=== PATIENT | female | born 1950 | race Caucasian/White ===

== ENCOUNTER → 2022-05-11 09:10 | Outpatient (CLI) | payer BC, SELFPAY ==
--- NOTE | 2022-05-11 09:11 | DI.ECHO.S_ITS ---
[facility] +---------+ : : [address] : : : : [id number] : : : : Phone: [phone] Echocardiogram Report + + :Name: TRISTAN LAMBERT Study Date: 05/11/2022 Height: 65 in : :[facility] ReadingLocation: Weight: 140 lb : : Gender: Female BSA: 1.7 m2 : :: 1950 Age: 71 yrs BP: 166/87 mmHg: :Reason For Study: RBBB : :Ordering Physician: AMNA, : :DAVID Performed By: Timoteo Moreno : :Referring: DAVID WOO : + + Interpretation Summary Sinus rhythm with IVCD. Hypertensive during exam Left ventricular systolic function is normal. The ejection fraction is estimated to be 55-60%. Diastolic parameters suggest a relaxation abnormality of the left ventricle, consistent with probable normal filling pressures. The left atrium is mildly dilated. There is mild tricuspid regurgitation. The right ventricular systolic pressure is estimated to be at least 29 mmHg based on an estimated right atrial pressure of 3 mm Hg. No prior study for comparison. Procedure: A two-dimensional transthoracic echocardiogram with color flow and Doppler was performed. The study quality was technically adequate. There is no prior echocardiogram noted for this patient. Sinus rhythm with IVCD. Hypertensive during exam. Left Ventricle: The left ventricle is normal in size and wall thickness. Left ventricular systolic function is normal. The ejection fraction is estimated to be 55-60%. There are no focal wall motion abnormalities. Diastolic parameters suggest a relaxation abnormality of the left ventricle, consistent with probable normal filling pressures. Right Ventricle: The right ventricle is normal in size and function. Atria: The left atrium is mildly dilated. Right atrial size is normal. The interatrial septum grossly appears intact with no obvious evidence for an atrial septal defect. Mitral Valve: The mitral valve is normal in structure and function. There is trace mitral regurgitation. Aortic Valve: The aortic valve is normal in structure and function. No aortic regurgitation is present. Tricuspid Valve: The tricuspid valve is normal in structure and function. There is mild tricuspid regurgitation. The right ventricular systolic pressure is estimated to be at least 29 mmHg based on an estimated right atrial pressure of 3 mm Hg. Pulmonic Valve: The pulmonic valve is normal in structure and function. There is trace pulmonic regurgitation. Great Vessels: The aortic root is normal size. The dimensions of the ascending aorta are normal. The IVC is of normal diameter and collapses greater than 50% with a sniff. This suggests a low right atrial pressure of 3 mm Hg. Pericardium/ Pleura There is no pericardial effusion. There is no pleural effusion. MMode/2D Measurements & Calculations LVIDd: 5.1 cm LVOT diam: 1.9 cm LVIDs: 3.5 cm Ao root diam: 2.9 cm FS: 31.5 % asc Aorta Diam: 3.6 cm IVSd: 0.72 cm LVPWd: 0.66 cm LV wick. diameter/BSA (cm/m^2): 3.0 LV sys. diameter/BSA (cm/m^2): 2.1 LA A2 area: 18.7 cm2 RA long axis: 4.7 cm LA A4 area: 18.7 cm2 RA area: 16.6 cm2 LA length (vol): 5.1 cm RA vol: 50.0 ml LA vol: 58.5 ml RA : 29.4 ml/m2 LA vol index: 34.4 ml/m2 TAPSE: 2.2 cm Doppler Measurements & Calculations Ao V2 max: 161.7 cm/sec LVOT Max Elo: 95.8 cm/sec Ao V2 mean: 111.8 cm/sec LV V1 max P.7 mmHg Ao max P.5 mmHg LV V1 VTI: 23.2 cm Ao mean P.5 mmHg NORBERTO(I,D): 1.8 cm2 Ao V2 VTI: 38.3 cm NORBERTO(V,D): 1.7 cm2 sev ratio: 0.61 NORBERTO indexed to BSA (cm^2/m^2): 1.0 MV E max leo: 62.6 cm/sec TR max leo: 252.6 cm/sec MV A max leo: 87.1 cm/sec TR max P.5 mmHg MV E/A: 0.72 Med Peak E' Leo: 6.5 cm/sec E/E' med: 9.6 Lat Peak E' Leo: 6.4 cm/sec E/E' lat: 9.8 E/e' average: 9.7 MV dec time: 0.23 sec SV(LVOT): 67.3 ml Reading Physician:EB
== END ==
PROVIDERS: Referring Provider Internal Medicine; Visit Provider Internal Medicine
DX: I25.10 Atherosclerotic heart disease of native coronary artery without angina pectoris (principal); I45.10 Unspecified right bundle-branch block; I07.1 Rheumatic tricuspid insufficiency
CPT/HCPCS: 93306

== ENCOUNTER → 2022-08-23 08:53 | Outpatient (CLI) | payer BC, SELFPAY ==
[2022-08-23 09:51] LABS: Add Manual Diff / Slide Review NO; Basophils Absolute Auto 0 /uL (0-100); Basophils Percent Auto 0.5 % (0-2); Eosinophils Absolute Auto 200 /uL (0-450); Eosinophils Percent Auto 2.9 % (2-4); Hematocrit 36.6 % (36-46); Lymphocytes Absolute Auto 1900 /uL (1100-4500); Lymphocytes Percent Auto 31.8 % (25-40); Mean Corpuscular HGB Conc 32.9 % (30-36); Mean Corpuscular Hemoglobin 29.9 PG (26-34); Mean Corpuscular Volume 90.9 fL (80-100); Monocytes Absolute Auto 500 /uL (0-900); Neutrophils Absolute Auto 3400 /uL (1500-7000); Neutrophils Percent Auto 55.8 % (50-75); Platelet Count 262 X10^3/uL (150-400); Red Blood Cell Count 4.02 X10^6/uL (4.0-5.2); Red Cell Distribution Width 13.4 % (11.6-14.8); White Blood Cell Count 6.1 X10^3/uL (4.5-11.0)
[2022-08-23 10:50] LABS: Alanine Aminotransferase 21 IU/L (<35); Albumin 4.1 g/dL (3.5-5.0); Albumin Globulin Ratio 1.6 (1.0-2.8); Alkaline Phosphatase 75 U/L (38-126); Aspartate Aminotransferase 26 IU/L (14-36); BUN Creatinine Ratio 14.1 (6-22); Bilirubin Total 0.6 mg/dL (0.2-1.3); Blood Urea Nitrogen 11 mg/dL (7-17); Carbon Dioxide 30 mmol/L (22-32); Chloride 105 mmol/L (98-107); Cholesterol 142 mg/dL (140-199); Estimated Glomerular Filt Rate > 60 mL/min (>60); Globulin 2.6 g/dL (1.7-4.1); Glucose 99 mg/dL (80-110); HDL Cholesterol 70 mg/dL (40-60); HEMOLYSIS < 15 (0-50); LDL Cholesterol Calculated 57 mg/dL (<100); Potassium 4.3 mmol/L (3.4-5.1); Sodium 142 mmol/L (137-145); Total Protein 6.7 g/dL (6.3-8.2); Triglycerides 75 mg/dL (35-150)
[2022-08-23 11:16] LABS: TSH w/ Reflex to FT4 2.15 uIU/mL (0.47-4.68)
[2022-08-23 11:17] LABS: Creatinine Urine Random 97.1 mg/dL
[2022-08-23 11:22] LABS: Microalbumin Urine Random < 0.6 mg/dL (0-1.6)
== END ==
PROVIDERS: PCP Family Medicine; Referring Provider Family Medicine; Visit Provider Family Medicine
DX: E78.2 Mixed hyperlipidemia (principal); I10 Essential (primary) hypertension; I25.10 Atherosclerotic heart disease of native coronary artery without angina pectoris; R00.2 Palpitations
CPT/HCPCS: 36415; 80053; 80061; 82043; 82570; 84443; 85025

== ENCOUNTER → 2022-11-28 11:11 | Outpatient (CLI) | payer BC, SELFPAY ==
[2022-11-28 13:27] LABS: Cholesterol 136 mg/dL (140-199); HDL Cholesterol 65 mg/dL (40-60); LDL Cholesterol Calculated 57 mg/dL (<100); Triglycerides 72 mg/dL (35-150)
== END ==
PROVIDERS: PCP Family Medicine; Referring Provider Internal Medicine Cardiovascular Disease; Visit Provider Internal Medicine Cardiovascular Disease
DX: E78.5 Hyperlipidemia, unspecified (principal)
CPT/HCPCS: 36415; 80061

== ENCOUNTER → 2023-05-08 14:21 | Outpatient (CLI) | payer BC, SELFPAY ==
--- NOTE | 2023-05-08 | DI.MG.S_ITS ---
BILATERAL DIGITAL SCREENING MAMMOGRAM 3D/2D WITH CAD: 05/08/2023 CLINICAL: Routine screening. Comparison is made to exams dated: 12/25/2021 mammogram, 05/26/2020 mammogram, and 01/28/2018 mammogram - outside location. Both breasts are almost entirely fatty (category a/<25% glandular tissue). Current study was also evaluated with a Computer Aided Detection (CAD) system. There are mole markers on the right breast. No significant masses, calcifications, or other findings are seen in either breast. There has been no significant interval change. IMPRESSION: NEGATIVE There is no mammographic evidence of malignancy. A 1 year screening mammogram is recommended. Based on the Tyrer Cuzick model (a risk assessment model) the patient's lifetime risk is 3.4% and her 10 year risk is 2.3%. According to the ACR, ACS, and NCCN guidelines, an annual breast MRI exam along with mammogram is recommended if the patient's lifetime risk is 20% or greater. This exam was interpreted at Station ID: [id number]. NOTE: For mammograms, a report in lay terms will be sent to the patient. Approximately 15% of breast malignancies will not be visualized mammographically. In the management of a palpable breast mass, a negative mammogram must not discourage biopsy of a clinically suspicious lesion. Electronically Signed By: Gavin wall/mirna:05/21/2023 11:05:12 letter sent: Normal Exam ACR BI-RADS Category 1: Negative 3341F
== END ==
PROVIDERS: PCP Family Medicine; Referring Provider Family Medicine; Visit Provider Family Medicine
DX: Z12.31 Encounter for screening mammogram for malignant neoplasm of breast (principal)
CPT/HCPCS: 77063; 77067

== ENCOUNTER → 2023-10-17 10:04 | Outpatient (CLI) | payer MEDICARE, SELFPAY ==
--- NOTE | 2023-10-17 10:07 | DI.RAD.S_ITS ---
Bone Density Report Name: TRISTAN LAMBERT Age: 72 Sex: Female Ethnicity: White Date of : 1950 Indication: postmenopausal; screening for osteoporosis; Referring Provider: HANNAH PENA Study: Bone densitometry was performed. Exam Date: October 17, 2023 Accession number: [id number] Bone Density: Region BMD T-score Z-score Classification AP Spine(L1-L4) 0.852 -1.8 0.4 Osteopenia Femoral Neck (Left) 0.624 -2.0 -0.1 Osteopenia Total Hip (Left) 0.752 -1.6 0.0 Osteopenia Femoral Neck (Right) 0.645 -1.8 0.1 Osteopenia Total Hip (Right) 0.784 -1.3 0.3 Osteopenia Total Hip Mean 0.768 -1.5 0.2 Osteopenia World Health Organization criteria for BMD impression classify patients as: Normal (T-score at or above -1.0), Osteopenia (T-score between -1.0 and -2.5), or Osteoporosis (T-score at or below -2.5). 10-year Fracture Risk(1): Major Osteoporotic Fracture 12% Hip Fracture 2.5% Reported Risk Factors: [place] (), Neck BMD=0.624, BMI=24.1 (1) FRAX(R) Version 3.08. Fracture probability calculated for an untreated patient. Fracture probability may be lower if the patient has received treatment. Impression: The patient has low bone mass, based on the Left Femoral Neck T-score. The patient has an estimated ten-year risk of hip fracture of 2.5% and an estimated ten-year risk of major fracture of 12%, based on the WHO FRAX algorithm. Discussion: BONE DENSITY IS LOW AT ONE OR MORE SKELETAL SITES. This patient's lowest T-score is low at one or more skeletal sites. It meets the World Health Organization's (WHO) criteria for low bone mass (T-score between -1.0 and -2.5). The patient's 10-year risk of fracture as calculated by FRAX is less than the threshold where pharmacological therapy is recommended by the National Osteoporosis Foundation (NOF). However, all treatment decisions require clinical judgment and consideration of individual patient factors, including patient preferences, comorbidities, previous drug use, risk factors not captured in the FRAX model (e.g., frailty, falls, vitamin D deficiency, increased bone turnover, interval significant decline in bone density) and possible under or overestimation of fracture risk by FRAX. The patient should follow a healthful lifestyle (good nutrition with adequate calcium and vitamin D, and appropriate weight-bearing exercise). Follow-Up: Consider repeating this study in 2 to 3 years to reassess this patient's status, or sooner if there is some new clinical indication. Reported by: SENA WHITMORE M.D. on 10/17/2023 11:20:00 AM.
[2023-10-17 11:46] LABS: Add Manual Diff / Slide Review NO; Basophils Absolute Auto 0 /uL (0-100); Basophils Percent Auto 0.8 % (0-2); Eosinophils Absolute Auto 100 /uL (0-450); Eosinophils Percent Auto 1.3 % (2-4); Hematocrit 37.1 % (36-46); Hemoglobin 12.2 g/dL (12.0-16.0); Lymphocytes Absolute Auto 1800 /uL (1100-4500); Lymphocytes Percent Auto 33.3 % (25-40); Mean Corpuscular HGB Conc 32.9 % (30-36); Mean Corpuscular Hemoglobin 29.7 PG (26-34); Mean Corpuscular Volume 90.4 fL (80-100); Monocytes Absolute Auto 500 /uL (0-900); Monocytes Percent Auto 8.8 % (3-14); Neutrophils Absolute Auto 3100 /uL (1500-7000); Neutrophils Percent Auto 55.8 % (50-75); Platelet Count 252 X10^3/uL (150-400); Red Cell Distribution Width 13.2 % (11.6-14.8); White Blood Cell Count 5.6 X10^3/uL (4.5-11.0)
[2023-10-17 12:17] LABS: Alanine Aminotransferase 21 IU/L (<35); Albumin Globulin Ratio 1.6 (1.0-2.8); Alkaline Phosphatase 72 U/L (38-126); Aspartate Aminotransferase 31 IU/L (14-36); BUN Creatinine Ratio 19.7 (6-22); Bilirubin Total 0.8 mg/dL (0.2-1.3); Blood Urea Nitrogen 15 mg/dL (7-17); Calcium 9.5 mg/dL (8.4-10.2); Carbon Dioxide 27 mmol/L (22-32); Chloride 107 mmol/L (98-107); Cholesterol 146 mg/dL (140-199); Estimated Glomerular Filt Rate > 60 mL/min (>60); Globulin 2.5 g/dL (1.7-4.1); Glucose 93 mg/dL (80-110); HDL Cholesterol 68 mg/dL (40-60); HEMOLYSIS < 15 (0-50); LDL Cholesterol Calculated 60 mg/dL (<100); Potassium 4.2 mmol/L (3.4-5.1); Sodium 139 mmol/L (137-145); Total Protein 6.5 g/dL (6.3-8.2); Triglycerides 91 mg/dL (35-150)
[2023-10-17 12:42] LABS: TSH w/ Reflex to FT4 2.19 uIU/mL (0.47-4.68)
[2023-10-17 15:01] LABS: Creatinine Urine Random 114.4 mg/dL
[2023-10-17 15:07] LABS: Microalbumin Urine Random < 0.6 mg/dL (0-1.6)
[2023-10-18 08:50] LABS: Apolipoprotein B 65 mg/dL (<90)
== END ==
PROVIDERS: PCP Family Medicine; Referring Provider Family Medicine; Visit Provider Family Medicine
DX: M81.0 Age-related osteoporosis without current pathological fracture (principal); I25.10 Atherosclerotic heart disease of native coronary artery without angina pectoris; I10 Essential (primary) hypertension; E78.2 Mixed hyperlipidemia; I45.10 Unspecified right bundle-branch block; R00.2 Palpitations
CPT/HCPCS: 36415; 77080; 80053; 80061; 82043; 82172; 82570; 84443; 85025

== ENCOUNTER → 2023-12-14 14:48 | Outpatient (CLI) | payer MEDICARE, SELFPAY | PROVIDERS: PCP Family Medicine; Visit Provider Registered Nurse | DX: J02.9 Acute pharyngitis, unspecified (principal) | CPT/HCPCS: 87070 ==

== ENCOUNTER → 2024-01-17 09:13 | Outpatient (CLI) | payer MEDICARE, SELFPAY | PROVIDERS: PCP Family Medicine; Visit Provider Nurse Practitioner Family | DX: R10.9 Unspecified abdominal pain (principal) | CPT/HCPCS: 87077; 87086; 87186 ==

== ENCOUNTER → 2024-03-03 08:58 | Outpatient (CLI) | payer MEDICARE, SELFPAY ==
--- NOTE | 2024-03-03 09:00 | DI.MG.S_ITS ---
BILATERAL DIGITAL DIAGNOSTIC MAMMOGRAM 3D/2D: 03/03/2024 CLINICAL: Bilateral breast pain, Left breast pain greater than Right. Due for bilateral. Comparison is made to exams dated: 05/08/2023 mammogram - [facility], 12/25/2021 mammogram, and 05/26/2020 mammogram - outside location. Both breasts are heterogeneously dense, which may obscure small masses (category c / 51-75% glandular tissue). There are post surgical changes from prior excisional biopsy in the left breast. No significant masses, calcifications, or other findings are seen in either breast. Of note, because the patient's symptoms are diffuse, no BB marker was placed. IMPRESSION: BENIGN Status post left breast excisional biopsy. No mammographic evidence of malignancy. A 1 year screening mammogram is recommended. Diffuse, non-focal symptoms, such as pain or fullness are typically benign. Clinical follow-up is recommended, and further management of these symptoms should be based on the results of clinical evaluation. If diffuse symptoms persist or become more focal in nature, further clinical evaluation should be considered. Findings and recommendations were conveyed to the patient during today's evaluation. Based on the Tyrer Cuzick model (a risk assessment model) the patient's lifetime risk is 7.2% and her 10 year risk is 5.4%. According to the ACR, ACS, and NCCN guidelines, an annual breast MRI exam along with mammogram is recommended if the patient's lifetime risk is 20% or greater. This exam was interpreted at Station ID: [id number]. NOTE: For mammograms, a report in lay terms will be sent to the patient. Approximately 15% of breast malignancies will not be visualized mammographically. In the management of a palpable breast mass, a negative mammogram must not discourage biopsy of a clinically suspicious lesion. Electronically Signed By: Latoya Horne M.D., Ph.D. eb/:03/03/2024 13:34:04 letter sent: Clinical Evaluation ACR BI-RADS Category 2: Benign Finding(s) 3342F
== END ==
PROVIDERS: PCP Family Medicine; Referring Provider Physician Assistant; Visit Provider Physician Assistant
DX: N64.4 Mastodynia (principal); N63.25 Unspecified lump in the left breast, overlapping quadrants; R92.333 Mammographic heterogeneous density, bilateral breasts
CPT/HCPCS: 77066; G0279

== ENCOUNTER 2024-03-25 12:23 | Emergency (ER) | payer MEDICARE, SELFPAY ==
[2024-03-25] VITALS (14 sets, daily range): BP systolic 159–198; BP diastolic 63–80; PULSE 46–59; RESP 13–25; TEMP 36.4–37.1; O2SAT 99–100; BMI 25.0
--- NOTE | 2024-03-25 12:29 | DI.RAD.S_ITS ---
PROCEDURE: XR CHEST 1V INDICATIONS: chest pain TECHNIQUE: One view of the chest was acquired. COMPARISON: None. FINDINGS: Surgical changes and devices: None. Lungs and pleura: Lungs are clear. No pleural effusions or pneumothorax. Mediastinum: Mediastinal contours appear normal. Heart size is normal. Bones and chest wall: No suspicious bony lesions. Overlying soft tissues appear unremarkable. IMPRESSION: No acute cardiopulmonary abnormality is seen. Dictated by: Nikolai Ramsey M.D. on 03/25/2024 at 14:30 Approved by: Nikolai Ramsey M.D. on 03/25/2024 at 14:30
--- NOTE | 2024-03-25 12:29 | EKG_ITS ---
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
[2024-03-25] MEDS: ASPIRIN 81 MG CHEW TAB 324 MG PO (12:34)
[2024-03-25 12:46] LABS: Add Manual Diff / Slide Review NO; Basophils Absolute Auto 0 /uL (0-100); Basophils Percent Auto 0.6 % (0-2); Eosinophils Absolute Auto 0 /uL (0-450); Eosinophils Percent Auto 0.6 % (2-4); Hematocrit 35.3 % (36-46); Hemoglobin 11.7 g/dL (12.0-16.0); Lymphocytes Absolute Auto 2200 /uL (1100-4500); Lymphocytes Percent Auto 34.1 % (25-40); Mean Corpuscular HGB Conc 33.3 % (30-36); Mean Corpuscular Hemoglobin 29.9 PG (26-34); Mean Corpuscular Volume 89.8 fL (80-100); Monocytes Absolute Auto 600 /uL (0-900); Monocytes Percent Auto 9.4 % (3-14); Neutrophils Absolute Auto 3600 /uL (1500-7000); Neutrophils Percent Auto 55.3 % (50-75); Platelet Count 289 X10^3/uL (150-400); Red Blood Cell Count 3.93 X10^6/uL (4.0-5.2); Red Cell Distribution Width 13.1 % (11.6-14.8); White Blood Cell Count 6.4 X10^3/uL (4.5-11.0)
[2024-03-25 12:50] LABS: HEMOLYSIS < 15 (0-50); Prothrombin Time 11.8 SECONDS (9.4-12.5)
[2024-03-25 12:53] LABS: PTT Partial Thromboplastin Tim 36 SECONDS (25.1-36.5)
[2024-03-25 12:55] LABS: Alanine Aminotransferase 25 IU/L (<35); Albumin 3.9 g/dL (3.5-5.0); Albumin Globulin Ratio 1.3 (1.0-2.8); Alkaline Phosphatase 65 U/L (38-126); Aspartate Aminotransferase 31 IU/L (14-36); BUN Creatinine Ratio 20.5 (6-22); Bilirubin Total 0.4 mg/dL (0.2-1.3); Blood Urea Nitrogen 16 mg/dL (7-17); Calcium 9.5 mg/dL (8.4-10.2); Carbon Dioxide 27 mmol/L (22-32); Chloride 104 mmol/L (98-107); Creatine Kinase 69 U/L (30-135); Estimated Glomerular Filt Rate > 60 mL/min (>60); Glucose 136 mg/dL (80-110); Lipase 139 U/L (23-300); Magnesium 1.9 mg/dL (1.6-2.3); Potassium 3.9 mmol/L (3.4-5.1); Sodium 135 mmol/L (137-145); Total Protein 6.9 g/dL (6.3-8.2)
[2024-03-25] MEDS: MAG HYDROX/ALUMINUM/SIMETH SUS 20 ML, LIDOCAINE VISCOUS 2% 15 ML PO (13:04)
[2024-03-25 13:06] LABS: NT-proBNP (BNP-Adult 18+) 176 pg/mL (<125)
[2024-03-25 13:08] LABS: Troponin I < 0.012 ng/mL (0.01-0.034)
--- NOTE | 2024-03-25 13:25 | ED.CHESTPAIN ---
HPI - Chest Pain General Chief Complaint: Chest Pain Stated Complaint: Indigestion, Back Px, Past Heart Attack Time Seen by Provider: 03/25/24 12:46 Source: patient Mode of arrival: Ambulatory Limitations: no limitations History of Present Illness HPI narrative: 73-year-old female with history of prior coronary artery disease, recalls 5 years ago in [facility] having chest pain event, heart catheterization showing some kind of 70% stenosis lesion but not any anatomic position to be stented, has subsequently had medical management including Lipitor and metoprolol and aspirin, now having 2 days' duration of lower parasternal precordial chest discomfort, not worse with deep breathing, no radiation to the left arm or jaw or neck. She has some right shoulder scapular area discomfort as she says is worse with movement of the right shoulder, but this feels different. This complex of symptoms is not feel typical of her previous heart attack symptoms. She had no associated nausea, no associated diaphoresis. No pain to her legs. She has not tried any specific medications. No recent antacid. No known history of stomach ulcers or stomach acid problems, no prior endoscopies recalled Related Data Home Medications Medication Instructions Recorded Confirmed Lactobacillus rhamnosus GG 1 cap PO DAILY 04/18/22 02/27/24 [Culturelle] calcium carbonate 1 tab PO BID 04/18/22 02/27/24 Previous Rx's Medication Instructions Recorded aspirin 81 mg tablet,delayed 81 mg PO DAILY #90 tabs 05/11/22 release sennosides 8.6 mg-docusate sodium 1 tab-cap PO BEDTIME #90 tabs 05/11/22 50 mg tablet (Stool Softener-Stimulant Laxative) cholecalciferol (vitamin D3) 125 125 mcg PO DAILY #90 caps 09/06/22 mcg (5,000 unit) capsule atorvastatin 40 mg tablet 40 mg PO BEDTIME #90 tabs 08/21/23 alendronate 70 mg tablet 70 mg PO QWEEK #12 tabs 01/21/24 metoprolol tartrate 25 mg tablet 25 mg PO BID #180 tabs 02/13/24 omeprazole 20 mg capsule,delayed 20 mg PO DAILY upper abdominal 03/25/24 release pain 30 days #30 caps Allergies Allergy/AdvReac Type Severity Reaction Status Date / Time No Known Drug Allergies Allergy Verified 03/25/24 12:27 Review of Systems Review of Systems Narrative: see HPI Patient History Medical History Allergies (~1972) Mumps (~1959) Fibroids Age-related osteoporosis without current pathological fracture Mixed hyperlipidemia Essential hypertension Coronary artery disease RBBB Palpitations Family History Father Cancer Mother History of heart disease Brother History of heart disease Sister History of heart disease Social History Smoking Status: Former smoker Smoking Status: Former smoker alcohol intake frequency: holidays/special occasions only Substance Use Type: does not use Exam Narrative Exam Narrative: GENERAL: Well-developed patient, in mild distress. HEAD: Atraumatic. Normocephalic. EYES: Pupils equal round and reactive. Extraocular motions intact. No scleral icterus. No injection or drainage. ENT: Nose without bleeding, purulent drainage. Throat without erythema, tonsillar hypertrophy or exudate. Airway patent. NECK: Trachea midline. Non tender CARDIOVASCULAR: Regular rate and rhythm without murmurs, gallops, or rubs. RESPIRATORY: Clear to auscultation. Breath sounds equal bilaterally. No wheezes, rales, or rhonchi. GASTROINTESTINAL: Abdomen soft, non-tender, nondistended. EXTREMITIES: No edema or joint tenderness. No tenderness around right scapula, normal range of motion. BACK: Nontender without deformity or crepitance. No flank tenderness. NEURO: AOx3. SKIN: No rash or erythema of visible areas Initial Vital Signs Initial Vital Signs: Vital Signs Temperature 97.5 F L 03/25/24 12:27 Pulse Rate 59 L 03/25/24 12:27 Respiratory Rate 15 03/25/24 12:27 Blood Pressure 184/79 H 03/25/24 12:27 Pulse Oximetry 100 03/25/24 12:27 Oxygen Delivery Method Room Air 03/25/24 12:27 Course Orders Ordered: ED Orders 03/25/24 12:29 XR chest 1V Stat EKG-12 Lead Stat 03/25/24 12:35 Complete Blood Count AUTO DIFF Stat Comprehensive Metabolic Panel Stat Lipase Stat Magnesium Stat NT-proBNP (BNP-Adult 18+) Stat PTT Partial Thromboplastin Kev Stat Prothrombin Time INR Stat Troponin & CK Cardiac Panel Stat 03/25/24 14:33 Troponin I Stat Discontinued Medications Aspirin (Aspirin 81 Mg Chew Tab) 324 mg PO NOW ONE Stop: 03/25/24 12:30 Last Admin: 03/25/24 12:34 Dose: 324 mg Documented By: ARNEL Al Hydrox/Mg Hydrox/Simethicone 20 ml/ Lidocaine HCl 15 ml 0 ml PO NOW ONE Stop: 03/25/24 12:47 Last Admin: 03/25/24 13:04 Dose: 35 ml Documented By: MAX Vital Signs Vital signs: Vital Signs - 8 hr 03/25/24 12:27 03/25/24 12:51 03/25/24 12:51 Temperature 97.5 F L Pulse Rate 59 L 52 L Respiratory Rate 15 Blood Pressure 184/79 H 177/73 H Pulse Oximetry 100 99 Oxygen Delivery Method Room Air 03/25/24 13:00 03/25/24 13:00 03/25/24 13:30 Temperature Pulse Rate 46 L 48 L Respiratory Rate 22 Blood Pressure 159/63 H Pulse Oximetry 99 99 Oxygen Delivery Method 03/25/24 13:30 03/25/24 14:00 03/25/24 14:00 Temperature Pulse Rate 48 L Respiratory Rate 15 Blood Pressure 168/80 H 193/79 H Pulse Oximetry 99 Oxygen Delivery Method 03/25/24 14:30 03/25/24 14:31 03/25/24 14:31 Temperature Pulse Rate 51 L 55 L Respiratory Rate 23 25 H Blood Pressure 169/72 H Pulse Oximetry 99 99 Oxygen Delivery Method 03/25/24 15:00 03/25/24 15:01 03/25/24 15:01 Temperature Pulse Rate 50 L 54 L Respiratory Rate 18 17 Blood Pressure 180/72 H Pulse Oximetry 99 99 Oxygen Delivery Method 03/25/24 15:30 03/25/24 15:31 03/25/24 15:31 Temperature Pulse Rate 51 L 55 L Respiratory Rate 13 17 Blood Pressure 198/80 H Pulse Oximetry 100 99 Oxygen Delivery Method 03/25/24 16:00 03/25/24 16:01 03/25/24 16:01 Temperature Pulse Rate 52 L 56 L Respiratory Rate 17 16 Blood Pressure 167/74 H Pulse Oximetry 99 100 Oxygen Delivery Method 03/25/24 16:40 Temperature 98.8 F Pulse Rate Respiratory Rate Blood Pressure Pulse Oximetry Oxygen Delivery Method MDM - Chest Pain Lab Data Attestation: I reviewed the patient's lab results. 03/25/24 12:35 03/25/24 12:35 Labs: Lab Results 03/25/24 03/25/24 Range/Units 12:35 14:33 WBC 6.4 (4.5-11.0) X10^3/uL RBC 3.93 L (4.0-5.2) X10^6/uL Hgb 11.7 L (12.0-16.0) g/dL Hct 35.3 L (36-46) % MCV 89.8 (80-100) fL MCH 29.9 (26-34) PG MCHC 33.3 (30-36) % RDW 13.1 (11.6-14.8) % Plt Count 289 (150-400) X10^3/uL Neut % (Auto) 55.3 (50-75) % Lymph % (Auto) 34.1 (25-40) % Jessamine % (Auto) 9.4 (3-14) % Eos % (Auto) 0.6 L (2-4) % Baso % (Auto) 0.6 (0-2) % Neut # (Auto) 3600 (2404-3926) /uL Lymph # (Auto) 2200 (0597-2376) /uL Jessamine # (Auto) 600 (0-900) /uL Eos # (Auto) 0 (0-450) /uL Baso # (Auto) 0 (0-100) /uL PT 11.8 (9.4-12.5) SECONDS INR 1.0 (0.9-1.3) APTT 36 (25.1-36.5) SECONDS Sodium 135 L (137-145) mmol/L Potassium 3.9 (3.4-5.1) mmol/L Chloride 104 (98-107) mmol/L Carbon Dioxide 27 (22-32) mmol/L BUN 16 (7-17) mg/dL Creatinine 0.78 (0.52-1.04) mg/dL Estimated GFR > 60 (>60) mL/min BUN/Creatinine Ratio 20.5 (6-22) Glucose 136 H (80-110) mg/dL Calcium 9.5 (8.4-10.2) mg/dL Magnesium 1.9 (1.6-2.3) mg/dL Total Bilirubin 0.4 (0.2-1.3) mg/dL AST 31 (14-36) IU/L ALT 25 (<35) IU/L Alkaline Phosphatase 65 (38-126) U/L Total Creatine Kinase 69 (30-135) U/L Troponin I < 0.012 < 0.012 (0.01-0.034) ng/mL NT-Pro-B Natriuret Pep 176 H (<125) pg/mL Total Protein 6.9 (6.3-8.2) g/dL Albumin 3.9 (3.5-5.0) g/dL Globulin 3.0 (1.7-4.1) g/dL Albumin/Globulin Ratio 1.3 (1.0-2.8) Lipase 139 (23-300) U/L Imaging Data Chest x-ray: Radiologist's Impression: [address] [address] XRay Report Signed Patient: Radha Meyers MR#: [id number] : 1950 Acct:[id number] Age/Sex: 73 / F Date of Service: 03/25/24 Loc: ED Accession Number: [id number] Procedure: XR chest 1V Ordering Provider: Vinay Sanchez MD PROCEDURE: XR CHEST 1V INDICATIONS: chest pain TECHNIQUE: One view of the chest was acquired. COMPARISON: None. FINDINGS: Surgical changes and devices: None. Lungs and pleura: Lungs are clear. No pleural effusions or pneumothorax. Mediastinum: Mediastinal contours appear normal. Heart size is normal. Bones and chest wall: No suspicious bony lesions. Overlying soft tissues appear unremarkable. IMPRESSION: No acute cardiopulmonary abnormality is seen. Dictated by: Nikolai Ramsey M.D. on 03/25/2024 at 14:30 Approved by: Nikolai Ramsey M.D. on 03/25/2024 at 14:30 ECG Data Attestation: I personally reviewed and interpreted this ECG as follows: Interpretation: Sinus bradycardia with rate 51, no obvious ST segment elevation or depression changes. Right bundle branch block pattern present. OH 150, QRS 122, QTC 412. MDM Narrative Medical decision making narrative: 73-year-old female with history of CAD, intermittent chest discomfort, screening EKG without obvious ischemic changes, initial troponin negative. GI cocktail given, improved symptoms. We will recheck interval troponin. Chest x-ray unremarkable. DDx consider ACS, pneumonia, chest wall discomfort, COMPA, other. Interval repeat troponin also negative. Trial of omeprazole. Further workup as an outpatient for now. Discharge home, stable, improved Discharge Plan Departure Patient Disposition: Home Clinical Impression: Chest pain Activity Restrictions/Additional Instructions: Chest discomfort of unclear etiology. Chest x-ray unremarkable. EKG and serial blood tests not suggestive heart attack at this time. Consider prescription omeprazole antacid for now. Further cardiac and other testing as an outpatient for now. Return to this/nearest emergency department for any change worsening symptoms or any concerns prior Prescriptions: New omeprazole 20 mg capsule,delayed release(DR/EC) 20 mg PO DAILY 30 Days Qty: 30 0RF No Action aspirin 81 mg tablet,delayed release (DR/EC) 81 mg PO DAILY Qty: 90 0RF sennosides-docusate sodium [Stool Softener-Stimulant Laxat] 8.6-50 mg tablet 1 tab-cap PO BEDTIME Qty: 90 0RF cholecalciferol (vitamin D3) 125 mcg (5,000 unit) capsule 125 mcg PO DAILY Qty: 90 1RF atorvastatin 40 mg tablet 40 mg PO BEDTIME Qty: 90 1RF alendronate 70 mg tablet 70 mg PO QWEEK Qty: 12 0RF metoprolol tartrate 25 mg tablet 25 mg PO BID Qty: 180 1RF Lactobacillus rhamnosus GG [Culturelle] 1 cap PO DAILY calcium carbonate 1 tab PO BID Referrals: Pato Vora MD [Primary Care Provider] - Stand Alone Forms: Patient Portal/API
[2024-03-25 15:39] LABS: Troponin I < 0.012 ng/mL (0.01-0.034)
== END 2024-03-25 16:41 | disposition home or self-care (01) ==
PROVIDERS: Emergency Provider Emergency Medicine; PCP Family Medicine
DX: R07.9 Chest pain, unspecified (principal); R00.1 Bradycardia, unspecified; I45.10 Unspecified right bundle-branch block; R79.89 Other specified abnormal findings of blood chemistry; Z79.899 Other long term (current) drug therapy
CPT/HCPCS: 36415; 71045; 80053; 82550; 83690; 83735; 83880; 84484; 85025; 85610; 85730; 93005; 93010; 99284

== ENCOUNTER → 2024-05-27 10:49 | Outpatient (CLI) | payer MEDICARE, SELFPAY | PROVIDERS: PCP Family Medicine; Visit Provider Student in an Organized Health Care Education/Training Program | DX: R30.0 Dysuria (principal); R10.2 Pelvic and perineal pain; N30.01 Acute cystitis with hematuria | CPT/HCPCS: 87086 ==

== ENCOUNTER → 2024-06-11 15:59 | Outpatient (CLI) | payer MEDICARE, SELFPAY | PROVIDERS: PCP Family Medicine; Visit Provider Nurse Practitioner Family | DX: M54.50 Low back pain, unspecified (principal) | CPT/HCPCS: 87086 ==

== ENCOUNTER → 2024-06-25 09:48 | Outpatient (CLI) | payer MEDICARE, SELFPAY ==
--- NOTE | 2024-06-25 09:49 | DI.CT.S_ITS ---
PROCEDURE: CT ABDOMEN PELVIS WO CON INDICATIONS: right flank pain TECHNIQUE: Axial sections were acquired from the lung bases to the pubic symphysis. Coronal and sagittal reformats were performed. For radiation dose reduction, the following was used: automated exposure control, adjustment of mA and/or kV according to patient size. COMPARISON: None. FINDINGS: Image quality: Diagnostic. Lower Chest: No significant findings. URINARY: Right Kidney: No obstructing stones or hydronephrosis. Tiny 2 mm nonobstructing stones are noted in mid to lower pole right kidney. Right Ureter: No hydroureter. Left Kidney: No obstructing stones or hydronephrosis. Tiny 1 mm nonobstructing stones are seen in midpole left kidney. Left Ureter: No hydroureter. Bladder: Normal wall thickness. No stones. ABDOMEN: Liver: No contour-deforming solid mass. Gallbladder: No radiopaque gallstones or wall thickening. Biliary ducts: No biliary dilation. Pancreas: No ductal dilation. Spleen: Size is within normal limits. Adrenal Glands: No adrenal nodules. Stomach and Bowel: Normal colonic caliber, without significant wall thickening. Appendix is visualized in right lower quadrant. No abscess collection. Peritoneum: No abnormal intraperitoneal fluid. No free air. Ventral Wall: No hernia. Abdominal Nodes: No enlarged retroperitoneal or mesenteric lymph nodes. Vessels: Aorta and inferior vena cava are normal in size. PELVIS: Pelvic Organs: Unremarkable. Pelvic Nodes: Unremarkable. Miscellaneous: No inguinal hernias are seen. Bones: No suspicious intraosseous lesions. No acute vertebral body compression fracture. Degenerative disc disease throughout lumbar spine is seen. IMPRESSION: 1. Tiny bilateral nonobstructing renal calculi. No obstructing stones or hydronephrosis. No hydroureter. Normal appearing urinary bladder. 2. No bowel obstruction or abnormal bowel wall thickening. Normal appendix. No free fluid or free air. 3. Degenerative disc disease in lumbar spine. No acute vertebral body compression fractures. Dictated by: Trever Carlton M.D. on 06/25/2024 at 10:22 Approved by: Trever Carlton M.D. on 06/25/2024 at 10:32
== END ==
PROVIDERS: PCP Family Medicine; Referring Provider Family Medicine; Visit Provider Family Medicine
DX: N39.0 Urinary tract infection, site not specified (principal); R10.9 Unspecified abdominal pain; N89.8 Other specified noninflammatory disorders of vagina; M51.369 Other intervertebral disc degeneration, lumbar region without mention of lumbar back pain or lower extremity pain; M25.561 Pain in right knee; M25.562 Pain in left knee
CPT/HCPCS: 36415; 73562; 74176; 80053; 81001; 85025; 87210

== ENCOUNTER → 2024-06-25 14:23 | Outpatient (CLI) | payer MEDICARE, SELFPAY ==
--- NOTE | 2024-06-25 15:08 | DI.RAD.S_ITS ---
PROCEDURE: XR KNEE LT 3V INDICATIONS: pain x 2 L>R mos more medially TECHNIQUE: 3 views of the knee were acquired. COMPARISON: None. FINDINGS: Minimal degenerative change of the medial compartment. No knee effusion. No acute fracture or dislocation. IMPRESSION: No acute bony abnormality or significant effusion. Dictated by: Sangeetha Pantoja M.D. on 06/25/2024 at 16:14 Approved by: Sangeetha Pantoja M.D. on 06/25/2024 at 16:15
--- NOTE | 2024-06-25 15:08 | DI.RAD.S_ITS ---
PROCEDURE: XR KNEE RT 3V INDICATIONS: pain x 6 mos L>R more medially TECHNIQUE: 3 views of the knee were acquired. COMPARISON: None. FINDINGS: Minimal degenerative changes of the medial compartment. No knee effusion. No acute fracture or dislocation. IMPRESSION: No acute bony abnormality or significant effusion. Dictated by: Sangeetha Pantoja M.D. on 06/25/2024 at 16:16 Approved by: Sangeetha Pantoja M.D. on 06/25/2024 at 16:17
[2024-06-25 16:46] LABS: Add Manual Diff / Slide Review NO; Basophils Absolute Auto 100 /uL (0-100); Basophils Percent Auto 0.6 % (0-2); Eosinophils Absolute Auto 100 /uL (0-450); Eosinophils Percent Auto 1.4 % (2-4); Hematocrit 34.8 % (36-46); Hemoglobin 11.6 g/dL (12.0-16.0); Lymphocytes Absolute Auto 3000 /uL (1100-4500); Lymphocytes Percent Auto 38.3 % (25-40); Mean Corpuscular HGB Conc 33.2 % (30-36); Mean Corpuscular Volume 90.2 fL (80-100); Monocytes Absolute Auto 800 /uL (0-900); Monocytes Percent Auto 10.7 % (3-14); Neutrophils Absolute Auto 3800 /uL (1500-7000); Platelet Count 256 X10^3/uL (150-400); Red Blood Cell Count 3.86 X10^6/uL (4.0-5.2); Red Cell Distribution Width 13.5 % (11.6-14.8); White Blood Cell Count 7.8 X10^3/uL (4.5-11.0)
[2024-06-25 17:15] LABS: Alanine Aminotransferase 30 IU/L (<35); Albumin 3.8 g/dL (3.5-5.0); Albumin Globulin Ratio 1.4 (1.0-2.8); Alkaline Phosphatase 76 U/L (38-126); Aspartate Aminotransferase 37 IU/L (14-36); Bilirubin Total 0.4 mg/dL (0.2-1.3); Blood Urea Nitrogen 16 mg/dL (7-17); Calcium 9.4 mg/dL (8.4-10.2); Carbon Dioxide 28 mmol/L (22-32); Chloride 105 mmol/L (98-107); Estimated Glomerular Filt Rate > 60 mL/min (>60); Globulin 2.7 g/dL (1.7-4.1); Glucose 91 mg/dL (80-110); HEMOLYSIS < 15 (0-50); Potassium 4.1 mmol/L (3.4-5.1); Sodium 136 mmol/L (137-145); Total Protein 6.5 g/dL (6.3-8.2)
[2024-06-25 18:21] LABS: Appearance Urine UA CLEAR; Bilirubin Urine UA NEGATIVE (NEGATIVE); Color Urine UA YELLOW; Glucose Urine UA NEGATIVE (Negative); Ketones Urine UA NEGATIVE (NEGATIVE); Leukocyte Esterase Urine UA NEGATIVE (NEGATIVE); Nitrite Urine UA NEGATIVE (Negative); Occult Blood Urine UA TRACE-INTACT (Negative); Protein Urine UA NEGATIVE (Negative); Specific Gravity Urine UA <=1.005 (1.000-1.035); Urobilinogen Urine UA 0.2 E.U./dL (0.2)
[2024-06-25 18:32] LABS: Bacteria Urine Occasional (0-1); Culture Indicated Urine Cult Not Indicated; RBC Urine None Seen (0-5/HPF); Squamous Epithelial Cell Urine None Seen (0-5/HPF); Urine Volume 10mL (spun); WBC Urine None Seen (0-5/HPF)
== END ==
PROVIDERS: PCP Family Medicine; Referring Provider Physician Assistant; Visit Provider Physician Assistant
DX: M25.561 Pain in right knee (principal); M25.562 Pain in left knee; R10.9 Unspecified abdominal pain; N89.8 Other specified noninflammatory disorders of vagina
CPT/HCPCS: 36415; 73562; 80053; 81001; 85025; 87210

== ENCOUNTER → 2024-07-24 13:18 | Outpatient (CLI) | payer MEDICARE, SELFPAY ==
[2024-07-24 14:08] LABS: Add Manual Diff / Slide Review NO; Basophils Absolute Auto 0 /uL (0-100); Basophils Percent Auto 0.6 % (0-2); Eosinophils Absolute Auto 100 /uL (0-450); Eosinophils Percent Auto 1.5 % (2-4); Hematocrit 36.9 % (36-46); Hemoglobin 12.1 g/dL (12.0-16.0); Lymphocytes Absolute Auto 2600 /uL (1100-4500); Lymphocytes Percent Auto 33.8 % (25-40); Mean Corpuscular HGB Conc 32.9 % (30-36); Mean Corpuscular Hemoglobin 29.6 PG (26-34); Mean Corpuscular Volume 89.9 fL (80-100); Monocytes Absolute Auto 800 /uL (0-900); Monocytes Percent Auto 9.7 % (3-14); Neutrophils Absolute Auto 4200 /uL (1500-7000); Neutrophils Percent Auto 54.4 % (50-75); Platelet Count 275 X10^3/uL (150-400); Red Cell Distribution Width 13.8 % (11.6-14.8); White Blood Cell Count 7.8 X10^3/uL (4.5-11.0)
[2024-07-24 14:29] LABS: Alanine Aminotransferase 25 IU/L (<35); Albumin 4.1 g/dL (3.5-5.0); Albumin Globulin Ratio 1.7 (1.0-2.8); Alkaline Phosphatase 75 U/L (38-126); Aspartate Aminotransferase 33 IU/L (14-36); BUN Creatinine Ratio 16.7 (6-22); Bilirubin Total 0.3 mg/dL (0.2-1.3); Blood Urea Nitrogen 14 mg/dL (7-17); Calcium 9.9 mg/dL (8.4-10.2); Carbon Dioxide 27 mmol/L (22-32); Chloride 105 mmol/L (98-107); Estimated Glomerular Filt Rate > 60 mL/min (>60); Globulin 2.4 g/dL (1.7-4.1); Glucose 93 mg/dL (80-110); HEMOLYSIS < 15 (0-50); Potassium 4.2 mmol/L (3.4-5.1); Sodium 139 mmol/L (137-145); Total Protein 6.5 g/dL (6.3-8.2)
[2024-07-24 15:13] LABS: Vitamin B12 647 pg/mL (239-931)
== END ==
PROVIDERS: PCP Family Medicine; Referring Provider Physician Assistant; Visit Provider Physician Assistant
DX: D64.9 Anemia, unspecified (principal); R10.9 Unspecified abdominal pain; N39.0 Urinary tract infection, site not specified
CPT/HCPCS: 36415; 80053; 82607; 85025

== ENCOUNTER → 2024-08-06 10:58 | Outpatient (CLI) | payer MEDICARE, SELFPAY ==
[2024-08-06 11:34] LABS: Appearance Urine UA CLEAR; Bilirubin Urine UA NEGATIVE (NEGATIVE); Color Urine UA YELLOW; Glucose Urine UA NEGATIVE (Negative); Ketones Urine UA NEGATIVE (NEGATIVE); Leukocyte Esterase Urine UA NEGATIVE (NEGATIVE); Nitrite Urine UA NEGATIVE (Negative); Occult Blood Urine UA NEGATIVE (Negative); Protein Urine UA NEGATIVE (Negative); Urobilinogen Urine UA 0.2 E.U./dL (0.2)
[2024-08-06 11:43] LABS: Bacteria Urine None Seen; Culture Indicated Urine Cult Not Indicated; RBC Urine None Seen (0-5/HPF); Squamous Epithelial Cell Urine None Seen (0-5/HPF); Urine Volume 10mL (spun); WBC Urine None Seen (0-5/HPF)
== END ==
PROVIDERS: Family Provider Family Medicine; PCP Family Medicine; Referring Provider Physician Assistant; Visit Provider Physician Assistant
DX: R31.29 Other microscopic hematuria (principal)
CPT/HCPCS: 81001

== ENCOUNTER 2024-10-01 10:45 | Outpatient (RCR) | payer MEDICARE, SELFPAY ==
--- NOTE | 2024-08-06 12:52 | PT.OPPOC ---
Physical, Occupational & Speech Therapy At [facility] Current Diagnoses Patellofemoral disorders, left knee (08/06/24) Pain in right knee (08/06/24) Pain in left knee (08/06/24) Strain of unspecified muscle(s) and tendon(s) at lower leg level, unspecified leg, initial encounter (08/06/24) Strain of unspecified muscle(s) and tendon(s) at lower leg level, unspecified leg, subsequent encounter (08/06/24) Visit Care Team Role Provider Type Pato Vora MD Family Provider Physician Primary Care Provider Specialty: Family Practice Address: [address] [place] [address], [facility] Email: [email or web address] Amy Dorsey PA-C Attending Provider Advanced Production Sampler Referring Provider Specialty: Medical Wound Care Address: [address] [place] [address], [facility] Email: [email or web address] Plan Of Care PT-OP-B Current Condition Start: 08/06/24 10:29 Freq: Status: Active Protocol: Document 08/06/24 09:45 DCW (Rec: 08/06/24 16:04 DCW [id number]) Current Condition History of Current Condition Onset Date Six month history Current Complaints Insideous onset L>R knee pain History of Current Condition Pt is a 73 year old female presenting with a six month history of L>R bilateral kness pain. Reports there was no initial injury, no notable life changes, she just work up one day and her knees were bothering her. Was not too bad , until a few weeks later, she was at her daughter's place babysitting her grandkids, and went up and down their stairs a few times, and her knees really flared up. She note her left knee specifically was quite swollen and painful, especially along superior patella and posterior knee. Slowly improved over a few weeks, and was largely improved for the past few months, until she went bowling with her family on New Year's Day. No pain at the time, but could barely move upon waking the next day. Almost always left worse than right, and worse when first getting up in the AM. Does note that this morning (08/06) was the first time since where she woke up with no swelling or pain. Denies and knee buckling or locking up. 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 PT-OP-T Assessment and Plan Start: 08/06/24 10:29 Freq: Status: Active Protocol: Document 08/06/24 09:45 DCW (Rec: 08/07/24 12:51 DCW [id number]) Physical Therapy Assessment Rehab Potential Rehabilitation Potential Good Evaluation Complexity Number of Personal Factors/Comorbidities 3 or More Number of Body Systems Impaired 4 or More Clinical Presentation at Evaluation Evolving Impairments Impairments Functional Activities, Functional Mobility,Pain,Soft Tissue Mobility,Strength Goals Three Impairment Increased pain with repeated ascend/descend stairs Custodial Goal (LTG) Pt to report ability to ascend /descend a full set of stairs 4 times without increased pain LTG Duration 10/04/24 Two Impairment Decreased quality of patellar tracking with knee extension Custodial Goal (LTG) Pt to demonstrate increased muscle mass and quality of contraction in left VMO in order to improve patellar tracking LTG Duration 10/04/24 One Impairment Pt does not have an appropriate home exercise program Short Term Goal (STG) Pt to be independent and compliant with an appropriate HEP STG Duration 09/06/24 Assessment Summary Assessment Pt presents with signs and symptoms consistent with referring diagnosis. Positive Dhillon test and Patellar grid suggestive of patellofemoral dysfunction, and pt exhibits some decreased left VMO contraction. Pt will likely benefit from skilled therapy focusing on joint mobility, VMO strengthening, pain management, and decreased tone. Physical Therapy Plan Frequency and Duration Frequency of Treatment 2x/Week Plan of Care Start Date 08/06/24 Plan of Care End Date 10/04/24 Therapeutic Interventions Therapeutic Interventions Home Exercise Program,Joint Mobilizations,Manual Therapy, Neuromuscular Re-education, Patient/Caregiver Education, Self-Care/Home Management,Soft Tissue Mobilization, Therapeutic Activities, Therapeutic Exercises, Vestibular Rehabilitation Modalities Cold Pack/Ice Massage,Hot Packs Next Visit Focus/Plan Next Note Type Treatment Note Next Visit Plan VMO strengthening, joint mobilization, STM Plan of Care Dates Plan of Care Start Date 08/06/24 Plan of Care End Date 10/04/24 Electronically Signed by: Tyrone Arvizu, PT 08/07/24 [id number] If you are in agreement with this Plan of Care, please return a signed and dated copy. I have reviewed this Plan of Care and certify that the skilled therapy services above are required to meet the patient?s needs. Physician Signature Date Printed Name and Credentials Clinical Instructor Signature Printed Name and Credentials
--- NOTE | 2024-08-06 12:52 | PT.OIE ---
Current Diagnoses Patellofemoral disorders, left knee (08/06/24) Pain in right knee (08/06/24) Pain in left knee (08/06/24) Strain of unspecified muscle(s) and tendon(s) at lower leg level, unspecified leg, initial encounter (08/06/24) Strain of unspecified muscle(s) and tendon(s) at lower leg level, unspecified leg, subsequent encounter (08/06/24) Past Medical History (Last Reviewed 12/14/23 @ 15:08 by MATT Taylor) Age-related osteoporosis without current pathological fracture Allergies (~1971) Coronary artery disease Essential hypertension Fibroids Mixed hyperlipidemia Mumps (~1958) Palpitations RBBB Visit Care Team Role Provider Type Pato Vora MD Family Provider Physician Primary Care Provider Specialty: Family Practice Address: [address] [place] [address] Email: [email or web address] Amy Dorsey PA-C Attending Provider Advanced It Applications Analyst Referring Provider Specialty: Medical Wound Care Address: [address] [place] [address], [facility] Email: [email or web address] Physical Therapy Initial Evaluation PT-OP-A Visit Information Start: 08/06/24 10:29 Freq: Status: Active Protocol: Document 08/06/24 09:45 DCW (Rec: 08/06/24 10:41 [facility] [id number]) Out-Patient Physical Therapy Visit Information Visit Information Visit Type Initial Evaluation Visit Start Time 09:45 Visit Stop Time 10:30 Visit Number 1 Number of PERIOPERATIVE ASSISTANT Visits 0 Evaluation Information Evaluation Date 08/06/24 PT-OP-B Current Condition Start: 08/06/24 10:29 Freq: Status: Active Protocol: Document 08/06/24 09:45 DCW (Rec: 08/06/24 16:04 DC [id number]) Current Condition History of Current Condition Onset Date Six month history Current Complaints Insideous onset L>R knee pain History of Current Condition Pt is a 73 year old female presenting with a six month history of L>R bilateral kness pain. Reports there was no initial injury, no notable life changes, she just work up one day and her knees were bothering her. Was not too bad , until a few weeks later, she was at her daughter's place babysitting her grandkids, and went up and down their stairs a few times, and her knees really flared up. She note her left knee specifically was quite swollen and painful, especially along superior patella and posterior knee. Slowly improved over a few weeks, and was largely improved for the past few months, until she went bowling with her family on Day. No pain at the time, but could barely move upon waking the next day. Almost always left worse than right, and worse when first getting up in the AM. Does note that this morning (08/06) was the first time since where she woke up with no swelling or pain. Denies and knee buckling or locking up. 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 PT-OP-C Subjective Start: 08/06/24 10:29 Freq: Status: Active Protocol: Document 08/06/24 09:45 DCW (Rec: 08/06/24 10:41 [facility] [id number]) OP-PT Subjective Patient Comments Patient Comments I don't want to actually feel like I'm 73, I want to feel normal. Patient Reported Progress Improving Patient Questionnaires Lower Extremity Functional Scale LEFS Score 53/80 = 66.25% LEFS Impairment 20 to 39% Impaired (Score 48- 62) PT-OP-F Manual Assessment Start: 08/06/24 10:29 Freq: Status: Active Protocol: Document 08/06/24 09:45 DCW (Rec: 08/06/24 10:41 DC [id number]) Manual Assessments Soft Tissue Assessment Soft Tissue Mobility Assessment Tenderness to palpation 2/4: Pain with wincing - left quad insertion, proximal gastroc, distal hamstrings Joint Mobility Assessment Joint Mobility Assessment Grinding in patella with lateral movements PT-OP-L Special Tests Start: 08/06/24 10:29 Freq: Status: Active Protocol: Document 08/06/24 09:45 DCW (Rec: 08/06/24 10:41 [facility] [id number]) Special Tests Knee Special Tests Varus- 25 Degrees Test Results Negative Valgus- 25 Degrees Test Results Negative Posterior Draw Test Results Negative Patella Tap Test Results Negative Patellar Grind Test Test Results Positive Left Earlene Test Test Results Negative Dhillon Chondromalacia Test Results Positive Left Anterior Draw Test Results Negative PT-OP-M Strength Start: 08/06/24 10:29 Freq: Status: Active Protocol: Document 08/06/24 09:45 DCW (Rec: 08/06/24 10:41 [facility] [id number]) Hip Strength Hip Manual Muscle Testing Right Flexion (L2) 4+ Good+ Abduction 4+ Good+ Adduction 4+ Good+ External Rotation 4+ Good+ Internal Rotation 4+ Good+ Left Flexion (L2) 4- Good- Abduction 4 Good Adduction 4 Good External Rotation 4+ Good+ Internal Rotation 4+ Good+ Knee Strength Knee Manual Muscle Testing Right Flexion (S2) 4+ Good+ Extension (L3) 4+ Good+ Left Flexion (S2) 4+ Good+ Extension (L3) 4+ Good+ PT-OP-Q Treatments Start: 08/06/24 10:29 Freq: Status: Active Protocol: Document 08/06/24 09:45 DCW (Rec: 08/06/24 10:41 [facility] [id number]) Therapeutic Exercises Supine Exercises Bridging Supine Exercise Name Bridging /c Adductor ball squeeze SLR Supine Exercise Name SLR /c ER Sidelying Exercises Hip Adduction Sidelying Exercise Name Hip Adduction PT-OP-T Assessment and Plan Start: 08/06/24 10:29 Freq: Status: Active Protocol: Document 08/06/24 09:45 DCW (Rec: 08/07/24 12:51 [facility] [id number]) Physical Therapy Assessment Rehab Potential Rehabilitation Potential Good Evaluation Complexity Number of Personal Factors/Comorbidities 3 or More Number of Body Systems Impaired 4 or More Clinical Presentation at Evaluation Evolving Impairments Impairments Functional Activities, Functional Mobility,Pain,Soft Tissue Mobility,Strength Goals Three Impairment Increased pain with repeated ascend/descend stairs Half-Way Goal (LTG) Pt to report ability to ascend /descend a full set of stairs 4 times without increased pain LTG Duration 10/04/24 Two Impairment Decreased quality of patellar tracking with knee extension Half-Way Goal (LTG) Pt to demonstrate increased muscle mass and quality of contraction in left VMO in order to improve patellar tracking LTG Duration 10/04/24 One Impairment Pt does not have an appropriate home exercise program Short Term Goal (STG) Pt to be independent and compliant with an appropriate HEP STG Duration 09/06/24 Assessment Summary Assessment Pt presents with signs and symptoms consistent with referring diagnosis. Positive Dhillon test and Patellar grid suggestive of patellofemoral dysfunction, and pt exhibits some decreased left VMO contraction. Pt will likely benefit from skilled therapy focusing on joint mobility, VMO strengthening, pain management, and decreased tone. Physical Therapy Plan Frequency and Duration Frequency of Treatment 2x/Week Plan of Care Start Date 08/06/24 Plan of Care End Date 10/04/24 Therapeutic Interventions Therapeutic Interventions Home Exercise Program,Joint Mobilizations,Manual Therapy, Neuromuscular Re-education, Patient/Caregiver Education, Self-Care/Home Management,Soft Tissue Mobilization, Therapeutic Activities, Therapeutic Exercises, Vestibular Rehabilitation Modalities Cold Pack/Ice Massage,Hot Packs Next Visit Focus/Plan Next Note Type Treatment Note Next Visit Plan VMO strengthening, joint mobilization, STM
--- NOTE | 2024-08-24 17:53 | PT.OTN ---
Current Diagnoses Patellofemoral disorders, left knee (08/24/24) Pain in right knee (08/24/24) Pain in left knee (08/24/24) Strain of unspecified muscle(s) and tendon(s) at lower leg level, unspecified leg, initial encounter (08/24/24) Strain of unspecified muscle(s) and tendon(s) at lower leg level, unspecified leg, subsequent encounter (08/24/24) Physical Therapy Treatment Note PT-OP-A Visit Information Start: 08/06/24 10:29 Freq: Status: Active Protocol: Document 08/24/24 17:00 DCW (Rec: 08/24/24 17:53 DCW [id number]) Out-Patient Physical Therapy Visit Information Visit Information Visit Type Treatment Note Visit Start Time 17:00 Visit Stop Time 17:45 Visit Number 2 Number of CONTINUOUS PROCESS COFFEE ROASTER Visits 0 Evaluation Information Evaluation Date 08/06/24 PT-OP-B Current Condition Start: 08/06/24 10:29 Freq: Status: Active Protocol: Document 08/06/24 09:45 DCW (Rec: 08/06/24 16:04 DCW [id number]) Current Condition History of Current Condition Onset Date Six month history Current Complaints Insideous onset L>R knee pain History of Current Condition Pt is a 73 year old female presenting with a six month history of L>R bilateral kness pain. Reports there was no initial injury, no notable life changes, she just work up one day and her knees were bothering her. Was not too bad , until a few weeks later, she was at her daughter's place babysitting her grandkids, and went up and down their stairs a few times, and her knees really flared up. She note her left knee specifically was quite swollen and painful, especially along superior patella and posterior knee. Slowly improved over a few weeks, and was largely improved for the past few months, until she went bowling with her family on Day. No pain at the time, but could barely move upon waking the next day. Almost always left worse than right, and worse when first getting up in the AM. Does note that this morning (08/06) was the first time since where she woke up with no swelling or pain. Denies and knee buckling or locking up. 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 PT-OP-C Subjective Start: 08/06/24 10:29 Freq: Status: Active Protocol: Document 08/24/24 17:00 DCW (Rec: 08/24/24 17:53 DCW [id number]) OP-PT Subjective Patient Comments Patient Comments Pt notes her pain has changed, very strong pain in the back of her knee, especially when first getting up from sitting, and feels very restricted/ tight trying to bend her right knee PT-OP-F Manual Assessment Start: 08/06/24 10:29 Freq: Status: Active Protocol: Document 08/06/24 09:45 DCW (Rec: 08/06/24 10:41 DCW [id number]) Manual Assessments Soft Tissue Assessment Soft Tissue Mobility Assessment Tenderness to palpation 2/4: Pain with wincing - left quad insertion, proximal gastroc, distal hamstrings Joint Mobility Assessment Joint Mobility Assessment Grinding in patella with lateral movements PT-OP-L Special Tests Start: 08/06/24 10:29 Freq: Status: Active Protocol: Document 08/06/24 09:45 DCW (Rec: 08/06/24 10:41 DCW [id number]) Special Tests Knee Special Tests Varus- 25 Degrees Test Results Negative Valgus- 25 Degrees Test Results Negative Posterior Draw Test Results Negative Patella Tap Test Results Negative Patellar Grind Test Test Results Positive Left Earlene Test Test Results Negative Dhillon Chondromalacia Test Results Positive Left Anterior Draw Test Results Negative PT-OP-M Strength Start: 08/06/24 10:29 Freq: Status: Active Protocol: Document 08/06/24 09:45 DCW (Rec: 08/06/24 10:41 DCW [id number]) Hip Strength Hip Manual Muscle Testing Right Flexion (L2) 4+ Good+ Abduction 4+ Good+ Adduction 4+ Good+ External Rotation 4+ Good+ Internal Rotation 4+ Good+ Left Flexion (L2) 4- Good- Abduction 4 Good Adduction 4 Good External Rotation 4+ Good+ Internal Rotation 4+ Good+ Knee Strength Knee Manual Muscle Testing Right Flexion (S2) 4+ Good+ Extension (L3) 4+ Good+ Left Flexion (S2) 4+ Good+ Extension (L3) 4+ Good+ PT-OP-Q Treatments Start: 08/06/24 10:29 Freq: Status: Active Protocol: Document 08/24/24 17:00 DCW (Rec: 08/24/24 17:53 DCW [id number]) Therapeutic Exercises Supine Exercises Hamstring Stretch Supine Exercise Name Hamstring stretch Side bilateral Standing Exercises TKE Standing Exercise Name TKE Side left Resistance Lv 2 Manual Therapy Treatment Soft Tissue Mobilization Left leg Body Location Hamstrings, Quads, Calf Mobilization Type Sustained Pressure,Trigger Point Release Body Position Hooklying Joint Mobilizations Left knee Joint L knee Direction P<->A Grade II Body Position Hooklying PT-OP-T Assessment and Plan Start: 08/06/24 10:29 Freq: Status: Active Protocol: Document 08/24/24 17:00 DCW (Rec: 08/24/24 17:53 DCW [id number]) Physical Therapy Assessment Goals Three Impairment Increased pain with repeated ascend/descend stairs Manager Behavior Goal (LTG) Pt to report ability to ascend /descend a full set of stairs 4 times without increased pain LTG Duration 10/04/24 Two Impairment Decreased quality of patellar tracking with knee extension Shelter Goal (LTG) Pt to demonstrate increased muscle mass and quality of contraction in left VMO in order to improve patellar tracking LTG Duration 10/04/24 One Impairment Pt does not have an appropriate home exercise program Short Term Goal (STG) Pt to be independent and compliant with an appropriate HEP STG Duration 09/06/24 Assessment Summary Assessment Pt comes in today with a change in complaints from initial evaluation. Pain in patella and anterior leg is largely resolved, but significant pain in the back of her left knee, struggles with full extension or flexion of left knee. May benefit from continued focus on quad and hamstring strengthening and improving stability of knee, however may greatly benefit from axial imaging. Physical Therapy Plan Frequency and Duration Frequency of Treatment 2x/Week Plan of Care Start Date 08/06/24 Plan of Care End Date 10/04/24 Therapeutic Interventions Therapeutic Interventions Home Exercise Program,Joint Mobilizations,Manual Therapy, Neuromuscular Re-education, Patient/Caregiver Education, Self-Care/Home Management,Soft Tissue Mobilization, Therapeutic Activities, Therapeutic Exercises, Vestibular Rehabilitation Modalities Cold Pack/Ice Massage,Hot Packs Next Visit Focus/Plan Next Note Type Treatment Note Next Visit Plan VMO strengthening, joint mobilization, STM
--- NOTE | 2024-08-27 16:23 | PT.OTN ---
Current Diagnoses Patellofemoral disorders, left knee (08/27/24) Pain in right knee (08/27/24) Pain in left knee (08/27/24) Strain of unspecified muscle(s) and tendon(s) at lower leg level, unspecified leg, initial encounter (08/27/24) Strain of unspecified muscle(s) and tendon(s) at lower leg level, unspecified leg, subsequent encounter (08/27/24) Physical Therapy Treatment Note PT-OP-A Visit Information Start: 08/06/24 10:29 Freq: Status: Active Protocol: Document 08/27/24 14:41 AB (Rec: 08/27/24 16:23 AB [id number]) Out-Patient Physical Therapy Visit Information Visit Information Visit Type Treatment Note Visit Start Time 15:18 Visit Stop Time 15:17 Visit Number 3 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 Reports there was no initial injury, no notable life changes, she just work up one day and her knees were bothering her. Was not too bad , until a few weeks later, she was at her daughter's place babysitting her grandkids, and went up and down their stairs a few times, and her knees really flared up. She note her left knee specifically was quite swollen and painful, especially along superior patella and posterior knee. Slowly improved over a few weeks, and was largely improved for the past few months, until she went bowling with her family on Day. No pain at the time, but could barely move upon waking the next day. Almost always left worse than right, and worse when first getting up in the AM. Does note that this morning (08/06) was the first time since where she woke up with no swelling or pain. Denies and knee buckling or locking up. 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 PT-OP-C Subjective Start: 08/06/24 10:29 Freq: Status: Active Protocol: Document 08/27/24 14:41 AB (Rec: 08/27/24 16:23 AB [id number]) OP-PT Subjective Patient Comments Patient Comments Patient reports pain when sitting for a period of time or getting out of the car, but the pain behind the knee is better. Patient reports left knee is stiff and painful. Right knee is much better. Patient desc stairs with a step to pattern descending reports patellar PT-OP-F Manual Assessment Start: 08/06/24 10:29 Freq: Status: Active Protocol: Document 08/06/24 09:45 DCW (Rec: 08/06/24 10:41 DCW [id number]) Manual Assessments Soft Tissue Assessment Soft Tissue Mobility Assessment Tenderness to palpation 2/4: Pain with wincing - left quad insertion, proximal gastroc, distal hamstrings Joint Mobility Assessment Joint Mobility Assessment Grinding in patella with lateral movements PT-OP-L Special Tests Start: 08/06/24 10:29 Freq: Status: Active Protocol: Document 08/06/24 09:45 DCW (Rec: 08/06/24 10:41 DCW [id number]) Special Tests Knee Special Tests Varus- 25 Degrees Test Results Negative Valgus- 25 Degrees Test Results Negative Posterior Draw Test Results Negative Patella Tap Test Results Negative Patellar Grind Test Test Results Positive Left Earlene Test Test Results Negative Dhillon Chondromalacia Test Results Positive Left Anterior Draw Test Results Negative PT-OP-M Strength Start: 08/06/24 10:29 Freq: Status: Active Protocol: Document 08/06/24 09:45 DCW (Rec: 08/06/24 10:41 DCW [id number]) Hip Strength Hip Manual Muscle Testing Right Flexion (L2) 4+ Good+ Abduction 4+ Good+ Adduction 4+ Good+ External Rotation 4+ Good+ Internal Rotation 4+ Good+ Left Flexion (L2) 4- Good- Abduction 4 Good Adduction 4 Good External Rotation 4+ Good+ Internal Rotation 4+ Good+ Knee Strength Knee Manual Muscle Testing Right Flexion (S2) 4+ Good+ Extension (L3) 4+ Good+ Left Flexion (S2) 4+ Good+ Extension (L3) 4+ Good+ PT-OP-Q Treatments Start: 08/06/24 10:29 Freq: Status: Active Protocol: Document 08/27/24 14:41 AB (Rec: 08/27/24 16:23 AB [id number]) Therapeutic Exercises Supine Exercises Hamstring Stretch Supine Exercise Name Hamstring stretch Side bilateral Reps/Minutes 60 sec each LE X 1 Bridging Supine Exercise Name Bridging /c Adductor ball squeeze Reps/Minutes X10 SLR Supine Exercise Name SLR /c ER and without Reps/Minutes X 10 each LE each LE position Comments VC to relax between reps Standing Exercises mini squat with band Standing Exercise Name HEP Side bilateral Resistance [place] green band Reps/Minutes X12 and X 8 Comments verbal and visual cues sit to stand Reps/Minutes X4 Comments Pt ed mech sit to stand and self tact cue for hip hinge Manual Therapy Treatment Soft Tissue Mobilization Left leg Body Location Hamstrings, Quads, Calf Mobilization Type Cross-Friction,Myofascial Release,Sustained Pressure Taping bilateral knees Treatment Focus Unload fat pad, improve tracking medially Type of Tape Kinesio Tape Skin Inspection wnl Comments Pt ed to remove tape in 3-5 days or immediately if skin irritation occurs horiz I strip for tracking, 2 I's peripat one med one lat superiorly stretched PT-OP-T Assessment and Plan Start: 08/06/24 10:29 Freq: Status: Active Protocol: Document 08/27/24 14:41 AB (Rec: 08/27/24 16:23 AB [id number]) Physical Therapy Assessment Goals Three Impairment Increased pain with repeated ascend/descend stairs Jail Goal (LTG) Pt to report ability to ascend /descend a full set of stairs 4 times without increased pain LTG Duration 10/04/24 Two Impairment Decreased quality of patellar tracking with knee extension Jail Goal (LTG) Pt to demonstrate increased muscle mass and quality of contraction in left VMO in order to improve patellar tracking LTG Duration 10/04/24 One Impairment Pt does not have an appropriate home exercise program Short Term Goal (STG) Pt to be independent and compliant with an appropriate HEP STG Duration 09/06/24 Assessment Summary Assessment Radha reports no patellar knee pain left knee descending stairs with bilateral rails reciprocal pattern end of session compared to trials start of session prior to kinesio tape. Josiane to mini squat depth, but required increased cues for hip hinge and increased pain with increased repetitions. Patient reports having no pain end of session. Patient also received ice 10 min bilateral knees elevated. Physical Therapy Plan Frequency and Duration Frequency of Treatment 2x/Week Plan of Care Start Date 08/06/24 Plan of Care End Date 10/04/24 Therapeutic Interventions Therapeutic Interventions Home Exercise Program,Joint Mobilizations,Manual Therapy, Neuromuscular Re-education, Patient/Caregiver Education, Self-Care/Home Management,Soft Tissue Mobilization, Therapeutic Activities, Therapeutic Exercises, Vestibular Rehabilitation Modalities Cold Pack/Ice Massage,Hot Packs Next Visit Focus/Plan Next Note Type Treatment Note Next Visit Plan VMO strengthening, joint mobilization, STM
--- NOTE | 2024-09-03 10:36 | PT.OTN ---
Current Diagnoses Patellofemoral disorders, left knee (09/03/24) Pain in right knee (09/03/24) Pain in left knee (09/03/24) Strain of unspecified muscle(s) and tendon(s) at lower leg level, unspecified leg, initial encounter (09/03/24) Strain of unspecified muscle(s) and tendon(s) at lower leg level, unspecified leg, subsequent encounter (09/03/24) Physical Therapy Treatment Note PT-OP-A Visit Information Start: 08/06/24 10:29 Freq: Status: Active Protocol: Document 09/03/24 08:06 AB (Rec: 09/03/24 10:36 AB [id number]) Out-Patient Physical Therapy Visit Information Visit Information Visit Type Treatment Note Visit Start Time 09:46 Visit Stop Time 10:30 Visit Number 4 Number of 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 Reports there was no initial injury, no notable life changes, she just work up one day and her knees were bothering her. Was not too bad , until a few weeks later, she was at her daughter's place babysitting her grandkids, and went up and down their stairs a few times, and her knees really flared up. She note her left knee specifically was quite swollen and painful, especially along superior patella and posterior knee. Slowly improved over a few weeks, and was largely improved for the past few months, until she went bowling with her family on Day. No pain at the time, but could barely move upon waking the next day. Almost always left worse than right, and worse when first getting up in the AM. Does note that this morning (08/06) was the first time since where she woke up with no swelling or pain. Denies and knee buckling or locking up. 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 PT-OP-C Subjective Start: 08/06/24 10:29 Freq: Status: Active Protocol: Document 09/03/24 08:06 AB (Rec: 09/03/24 10:36 AB [id number]) OP-PT Subjective Patient Comments Patient Comments Patient reports stiffness ambulating into sesssion and stiffnes is the same/no pain ascending and descending stairs. Patient reports knee feels almost painful when bending down to level of preschool students in chairs. PT-OP-F Manual Assessment Start: 08/06/24 10:29 Freq: Status: Active Protocol: Document 08/06/24 09:45 DCW (Rec: 08/06/24 10:41 DCW [id number]) Manual Assessments Soft Tissue Assessment Soft Tissue Mobility Assessment Tenderness to palpation 2/4: Pain with wincing - left quad insertion, proximal gastroc, distal hamstrings Joint Mobility Assessment Joint Mobility Assessment Grinding in patella with lateral movements PT-OP-L Special Tests Start: 08/06/24 10:29 Freq: Status: Active Protocol: Document 08/06/24 09:45 DCW (Rec: 08/06/24 10:41 DCW [id number]) Special Tests Knee Special Tests Varus- 25 Degrees Test Results Negative Valgus- 25 Degrees Test Results Negative Posterior Draw Test Results Negative Patella Tap Test Results Negative Patellar Grind Test Test Results Positive Left Earlene Test Test Results Negative Dhillon Chondromalacia Test Results Positive Left Anterior Draw Test Results Negative PT-OP-M Strength Start: 08/06/24 10:29 Freq: Status: Active Protocol: Document 08/06/24 09:45 DCW (Rec: 08/06/24 10:41 DCW [id number]) Hip Strength Hip Manual Muscle Testing Right Flexion (L2) 4+ Good+ Abduction 4+ Good+ Adduction 4+ Good+ External Rotation 4+ Good+ Internal Rotation 4+ Good+ Left Flexion (L2) 4- Good- Abduction 4 Good Adduction 4 Good External Rotation 4+ Good+ Internal Rotation 4+ Good+ Knee Strength Knee Manual Muscle Testing Right Flexion (S2) 4+ Good+ Extension (L3) 4+ Good+ Left Flexion (S2) 4+ Good+ Extension (L3) 4+ Good+ PT-OP-Q Treatments Start: 08/06/24 10:29 Freq: Status: Active Protocol: Document 09/03/24 08:06 AB (Rec: 09/03/24 10:36 AB [id number]) Gym Equipment Shuttle Recovery bilateral squat Details 75# Reps/Time 15 X2 single leg squat Details L 25# X 10 50# X 10 R LE X10 50 # Reps/Time 2X10 L ( see above) X10 R Therapeutic Exercises Supine Exercises Hamstring Stretch Supine Exercise Name Hamstring stretch Side bilateral Reps/Minutes 60 sec X 2 left X 1 R Comments post manual Bridging Supine Exercise Name Bridging /c Adductor ball squeeze Reps/Minutes X10 SLR Supine Exercise Name SLR /c ER and without Reps/Minutes X 10 each LE each LE position Comments post manual and HS stretch Sidelying Exercises hip abduction Side left Reps/Minutes X15 Comments verbal and visual cues Hip Adduction Sidelying Exercise Name Hip Adduction Side left Reps/Minutes X15 Comments verbal and visual cues Standing Exercises mini squat with band Standing Exercise Name HEP Side bilateral Resistance [place] green band Reps/Minutes X10 X2 Comments verbal and visual cues HEP review TKE Standing Exercise Name TKE Side left Resistance Lv 3 Reps/Minutes X15 Comments with UE support Manual Therapy Treatment Consent Patient gave verbal consent for manual Yes treatment Soft Tissue Mobilization Left leg Body Location Hamstrings, Quads, Calf Mobilization Type Cross-Friction,Rolling, Sustained Pressure Body Position Hooklying Joint Mobilizations patellar mobs Joint CW CCW, inf, sup, lat and med Direction L knee Grade III Reps/Duration X5 X 5 Left knee Joint L knee Direction P<->A Grade II Body Position Hooklying PT-OP-T Assessment and Plan Start: 08/06/24 10:29 Freq: Status: Active Protocol: Document 09/03/24 08:06 AB (Rec: 09/03/24 10:36 AB [id number]) Physical Therapy Assessment Goals Three Impairment Increased pain with repeated ascend/descend stairs Detention Goal (LTG) Pt to report ability to ascend /descend a full set of stairs 4 times without increased pain LTG Duration 10/04/24 Two Impairment Decreased quality of patellar tracking with knee extension Car Greaser Goal (LTG) Pt to demonstrate increased muscle mass and quality of contraction in left VMO in order to improve patellar tracking LTG Duration 10/04/24 One Impairment Pt does not have an appropriate home exercise program Short Term Goal (STG) Pt to be independent and compliant with an appropriate HEP STG Duration 09/06/24 Assessment Summary Assessment No change in functional mobililty, strength takes 6-8 weeks to make a change in motion. Patient into session with reports that pain is on and off left knee, end of session rates pain 0/10 Physical Therapy Plan Frequency and Duration Frequency of Treatment 2x/Week Plan of Care Start Date 08/06/24 Plan of Care End Date 10/04/24 Next Visit Focus/Plan Next Note Type Treatment Note Next Visit Plan VMO strengthening, joint mobilization, STM
--- NOTE | 2024-09-10 11:29 | PT.OTN ---
Current Diagnoses Patellofemoral disorders, left knee (09/10/24) Pain in right knee (09/10/24) Pain in left knee (09/10/24) Strain of unspecified muscle(s) and tendon(s) at lower leg level, unspecified leg, initial encounter (09/10/24) Strain of unspecified muscle(s) and tendon(s) at lower leg level, unspecified leg, subsequent encounter (09/10/24) Physical Therapy Treatment Note PT-OP-A Visit Information Start: 08/06/24 10:29 Freq: Status: Active Protocol: Document 09/10/24 10:49 DCW (Rec: 09/10/24 11:29 DCW [id number]) Out-Patient Physical Therapy Visit Information Visit Information Visit Type Treatment Note Visit Start Time 10:49 Visit Stop Time 11:30 Visit Number 5 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 Reports there was no initial injury, no notable life changes, she just work up one day and her knees were bothering her. Was not too bad , until a few weeks later, she was at her daughter's place babysitting her grandkids, and went up and down their stairs a few times, and her knees really flared up. She note her left knee specifically was quite swollen and painful, especially along superior patella and posterior knee. Slowly improved over a few weeks, and was largely improved for the past few months, until she went bowling with her family on Day. No pain at the time, but could barely move upon waking the next day. Almost always left worse than right, and worse when first getting up in the AM. Does note that this morning (08/06) was the first time since where she woke up with no swelling or pain. Denies and knee buckling or locking up. 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 PT-OP-C Subjective Start: 08/06/24 10:29 Freq: Status: Active Protocol: Document 09/10/24 10:49 DCW (Rec: 09/10/24 11:29 DCW [id number]) OP-PT Subjective Patient Comments Patient Comments Pt has an appointment with PCP on Sep 16 in order to obtain referral for MRI. Does note knee is so much better than it originally was. PT-OP-F Manual Assessment Start: 08/06/24 10:29 Freq: Status: Active Protocol: Document 08/06/24 09:45 DCW (Rec: 08/06/24 10:41 DCW [id number]) Manual Assessments Soft Tissue Assessment Soft Tissue Mobility Assessment Tenderness to palpation 2/4: Pain with wincing - left quad insertion, proximal gastroc, distal hamstrings Joint Mobility Assessment Joint Mobility Assessment Grinding in patella with lateral movements PT-OP-L Special Tests Start: 08/06/24 10:29 Freq: Status: Active Protocol: Document 08/06/24 09:45 DCW (Rec: 08/06/24 10:41 DCW [id number]) Special Tests Knee Special Tests Varus- 25 Degrees Test Results Negative Valgus- 25 Degrees Test Results Negative Posterior Draw Test Results Negative Patella Tap Test Results Negative Patellar Grind Test Test Results Positive Left Earlene Test Test Results Negative Dhillon Chondromalacia Test Results Positive Left Anterior Draw Test Results Negative PT-OP-M Strength Start: 08/06/24 10:29 Freq: Status: Active Protocol: Document 08/06/24 09:45 DCW (Rec: 08/06/24 10:41 DCW [id number]) Hip Strength Hip Manual Muscle Testing Right Flexion (L2) 4+ Good+ Abduction 4+ Good+ Adduction 4+ Good+ External Rotation 4+ Good+ Internal Rotation 4+ Good+ Left Flexion (L2) 4- Good- Abduction 4 Good Adduction 4 Good External Rotation 4+ Good+ Internal Rotation 4+ Good+ Knee Strength Knee Manual Muscle Testing Right Flexion (S2) 4+ Good+ Extension (L3) 4+ Good+ Left Flexion (S2) 4+ Good+ Extension (L3) 4+ Good+ PT-OP-Q Treatments Start: 08/06/24 10:29 Freq: Status: Active Protocol: Document 09/10/24 10:49 DCW (Rec: 09/10/24 11:29 DCW [id number]) Gym Equipment Shuttle Recovery bilateral squat Details 75# Reps/Time 2x15 single leg squat Resistance 37# Reps/Time 2x15 Therapeutic Exercises Standing Exercises Hip Extension Standing Exercise Name Hip Extension Side bilateral Resistance Green Other Exercises Step Ups Other Exercise Name Step-ups Side bilateral Equipment Used 6 step Resisted Ambulation Other Exercise Name Resisted Side-stepping Resistance Green Manual Therapy Treatment Consent Patient gave verbal consent for manual Yes treatment Soft Tissue Mobilization Left leg Body Location Hamstrings, Quads, Calf Mobilization Type Cross-Friction,Rolling, Sustained Pressure Body Position Hooklying Joint Mobilizations patellar mobs Joint CW CCW, inf, sup, lat and med Direction L knee Grade III Reps/Duration X5 X 5 Neuro Re-Education Treatment Balance Activities BOSU Lunge Details BOSU Lunge Surface Blue BOSU PT-OP-T Assessment and Plan Start: 08/06/24 10:29 Freq: Status: Active Protocol: Document 09/10/24 10:49 DCW (Rec: 09/10/24 11:29 DCW [id number]) Physical Therapy Assessment Impairments Impairments Functional Activities, Functional Mobility,Pain,Soft Tissue Mobility,Strength Goals Three Impairment Increased pain with repeated ascend/descend stairs Long-Term Goal (LTG) Pt to report ability to ascend /descend a full set of stairs 4 times without increased pain LTG Duration 10/04/24 Two Impairment Decreased quality of patellar tracking with knee extension Log Grader Goal (LTG) Pt to demonstrate increased muscle mass and quality of contraction in left VMO in order to improve patellar tracking LTG Duration 10/04/24 One Impairment Pt does not have an appropriate home exercise program Short Term Goal (STG) Pt to be independent and compliant with an appropriate HEP STG Duration 09/06/24 Assessment Summary Assessment Pt noting significant overall improvement in pain levels, noted that recently only painful when waking up on her side with her knees pressed against each other, pain stopped immediately with change in position. Discussed use of pillow between knees to help maintain good sleep. Continue with strengthening and mobility. Physical Therapy Plan Frequency and Duration Frequency of Treatment 2x/Week Plan of Care Start Date 08/06/24 Plan of Care End Date 10/04/24 Therapeutic Interventions Therapeutic Interventions Home Exercise Program,Joint Mobilizations,Manual Therapy, Neuromuscular Re-education, Patient/Caregiver Education, Self-Care/Home Management,Soft Tissue Mobilization, Therapeutic Activities, Therapeutic Exercises, Vestibular Rehabilitation Modalities Cold Pack/Ice Massage,Hot Packs Next Visit Focus/Plan Next Note Type Treatment Note Next Visit Plan VMO strengthening, joint mobilization, STM
--- NOTE | 2024-09-17 16:34 | PT.OTN ---
Current Diagnoses Patellofemoral disorders, left knee (09/17/24) Pain in right knee (09/17/24) Pain in left knee (09/17/24) Strain of unspecified muscle(s) and tendon(s) at lower leg level, unspecified leg, initial encounter (09/17/24) Strain of unspecified muscle(s) and tendon(s) at lower leg level, unspecified leg, subsequent encounter (09/17/24) Physical Therapy Treatment Note PT-OP-A Visit Information Start: 08/06/24 10:29 Freq: Status: Active Protocol: Document 09/17/24 08:07 AB (Rec: 09/17/24 08:57 AB [id number]) Out-Patient Physical Therapy Visit Information Visit Information Visit Type Treatment Note Visit Start Time 08:17 Visit Stop Time 09:00 Visit Number 6 Number of BIOMEDICAL ENGINEERING TECHNOLOGIST Visits 1 Evaluation Information Evaluation Date 08/06/24 PT-OP-B Current Condition Start: 08/06/24 10:29 Freq: Status: Active Protocol: Document 08/06/24 09:45 DCW (Rec: 08/06/24 16:04 DCW [id number]) Current Condition History of Current Condition Onset Date Six month history Current Complaints Insideous onset L>R knee pain History of Current Condition Pt is a 73 year old female presenting with a six month history of L>R bilateral kness pain. Reports there was no initial injury, no notable life changes, she just work up one day and her knees were bothering her. Was not too bad , until a few weeks later, she was at her daughter's place babysitting her grandkids, and went up and down their stairs a few times, and her knees really flared up. She note her left knee specifically was quite swollen and painful, especially along superior patella and posterior knee. Slowly improved over a few weeks, and was largely improved for the past few months, until she went bowling with her family on Day. No pain at the time, but could barely move upon waking the next day. Almost always left worse than right, and worse when first getting up in the AM. Does note that this morning (08/06) was the first time since where she woke up with no swelling or pain. Denies and knee buckling or locking up. 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 PT-OP-C Subjective Start: 08/06/24 10:29 Freq: Status: Active Protocol: Document 09/17/24 08:07 AB (Rec: 09/17/24 08:57 AB [id number]) OP-PT Subjective Patient Comments Patient Comments Patient reports the knee has been achy, not horrendous, comments she stopped taking the Voltaren. PT-OP-F Manual Assessment Start: 08/06/24 10:29 Freq: Status: Active Protocol: Document 08/06/24 09:45 DCW (Rec: 08/06/24 10:41 DCW [id number]) Manual Assessments Soft Tissue Assessment Soft Tissue Mobility Assessment Tenderness to palpation 2/4: Pain with wincing - left quad insertion, proximal gastroc, distal hamstrings Joint Mobility Assessment Joint Mobility Assessment Grinding in patella with lateral movements PT-OP-L Special Tests Start: 08/06/24 10:29 Freq: Status: Active Protocol: Document 08/06/24 09:45 DCW (Rec: 08/06/24 10:41 DCW [id number]) Special Tests Knee Special Tests Varus- 25 Degrees Test Results Negative Valgus- 25 Degrees Test Results Negative Posterior Draw Test Results Negative Patella Tap Test Results Negative Patellar Grind Test Test Results Positive Left Earlene Test Test Results Negative Dhillon Chondromalacia Test Results Positive Left Anterior Draw Test Results Negative PT-OP-M Strength Start: 08/06/24 10:29 Freq: Status: Active Protocol: Document 08/06/24 09:45 DCW (Rec: 08/06/24 10:41 DCW [id number]) Hip Strength Hip Manual Muscle Testing Right Flexion (L2) 4+ Good+ Abduction 4+ Good+ Adduction 4+ Good+ External Rotation 4+ Good+ Internal Rotation 4+ Good+ Left Flexion (L2) 4- Good- Abduction 4 Good Adduction 4 Good External Rotation 4+ Good+ Internal Rotation 4+ Good+ Knee Strength Knee Manual Muscle Testing Right Flexion (S2) 4+ Good+ Extension (L3) 4+ Good+ Left Flexion (S2) 4+ Good+ Extension (L3) 4+ Good+ PT-OP-Q Treatments Start: 08/06/24 10:29 Freq: Status: Active Protocol: Document 09/17/24 08:07 AB (Rec: 09/17/24 08:57 AB [id number]) Gym Equipment Shuttle Recovery single leg squat Resistance 50# Reps/Time 2x15 Therapeutic Exercises Supine Exercises Hamstring Stretch Supine Exercise Name Hamstring stretch Side bilateral Reps/Minutes 60 sec X 2 left X 1 R Comments post manual SLR Supine Exercise Name SLR /c ER Reps/Minutes X 10 each LE each LE position Comments post manual and HS stretch Sitting Exercises Seated hip abd with band Side bilateral Resistance pauma green band Reps/Minutes one min X 1 Comments Verbal cues Standing Exercises calf stretches Standing Exercise Name on Kurt, soleus and gastroc Side bilateral Reps/Minutes 60 sec each stretch X2 Comments Verbal and visual cues mini squat with band Standing Exercise Name HEP Side bilateral Resistance pauma green band Reps/Minutes X10 X2 Comments verbal and visual cues HEP review Manual Therapy Treatment Consent Patient gave verbal consent for manual Yes treatment Soft Tissue Mobilization Left leg Body Location Hamstrings, Quads, Calf Mobilization Type Cross-Friction,Rolling, Sustained Pressure Body Position Hooklying Joint Mobilizations patellar mobs Joint CW CCW, inf, sup, lat and med Direction L knee Grade III Reps/Duration X5 X 5 Left knee Joint L knee Direction P<->A Grade III Body Position Hooklying PT-OP-T Assessment and Plan Start: 08/06/24 10:29 Freq: Status: Active Protocol: Document 09/17/24 08:07 AB (Rec: 09/17/24 08:57 AB [id number]) Physical Therapy Assessment Goals Three Impairment Increased pain with repeated ascend/descend stairs Farm Helper Goal (LTG) Pt to report ability to ascend /descend a full set of stairs 4 times without increased pain LTG Duration 10/04/24 Two Impairment Decreased quality of patellar tracking with knee extension Group Home Goal (LTG) Pt to demonstrate increased muscle mass and quality of contraction in left VMO in order to improve patellar tracking LTG Duration 10/04/24 One Impairment Pt does not have an appropriate home exercise program Short Term Goal (STG) Pt to be independent and compliant with an appropriate HEP STG Duration 09/06/24 Assessment Summary Assessment Patient into session with reports of tape not helpful, 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 Physical Therapy Plan Frequency and Duration Frequency of Treatment 2x/Week Plan of Care Start Date 08/06/24 Plan of Care End Date 10/04/24 Next Visit Focus/Plan Next Note Type Treatment Note Next Visit Plan VMO strengthening, joint mobilization, STM
--- NOTE | 2024-09-22 11:06 | PT-OP ANOTE ---
Phoned patient, patient reports she is rushing to get here, she left a message she would be late due to car being repaired and difficulty getting back up. Patient reports she didn't realize she would be this late, and is approaching the bridge. Appt cancelled, patient advised not to batres in order to attend session for minimal minutes.
--- NOTE | 2024-09-29 11:29 | PT.OTN ---
Current Diagnoses Patellofemoral disorders, left knee (09/29/24) Pain in right knee (09/29/24) Pain in left knee (09/29/24) Strain of unspecified muscle(s) and tendon(s) at lower leg level, unspecified leg, initial encounter (09/29/24) Strain of unspecified muscle(s) and tendon(s) at lower leg level, unspecified leg, subsequent encounter (09/29/24) Physical Therapy Treatment Note PT-OP-A Visit Information Start: 08/06/24 10:29 Freq: Status: Active Protocol: Document 09/29/24 10:45 DCW (Rec: 09/29/24 11:29 DCW [id number]) Out-Patient Physical Therapy Visit Information Visit Information Visit Type Treatment Note Visit Start Time 10:45 Visit Stop Time 11:30 Visit Number 7 Number of RIBBON LAPPER TENDER Visits 0 Evaluation Information Evaluation Date 08/06/24 PT-OP-B Current Condition Start: 08/06/24 10:29 Freq: Status: Active Protocol: Document 08/06/24 09:45 DCW (Rec: 08/06/24 16:04 DCW [id number]) Current Condition History of Current Condition Onset Date Six month history Current Complaints Insideous onset L>R knee pain History of Current Condition Pt is a 73 year old female presenting with a six month history of L>R bilateral kness pain. Reports there was no initial injury, no notable life changes, she just work up one day and her knees were bothering her. Was not too bad , until a few weeks later, she was at her daughter's place babysitting her grandkids, and went up and down their stairs a few times, and her knees really flared up. She note her left knee specifically was quite swollen and painful, especially along superior patella and posterior knee. Slowly improved over a few weeks, and was largely improved for the past few months, until she went bowling with her family on Day. No pain at the time, but could barely move upon waking the next day. Almost always left worse than right, and worse when first getting up in the AM. Does note that this morning (08/06) was the first time since where she woke up with no swelling or pain. Denies and knee buckling or locking up. 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 PT-OP-C Subjective Start: 08/06/24 10:29 Freq: Status: Active Protocol: Document 09/29/24 10:45 DCW (Rec: 09/29/24 11:29 DCW [id number]) OP-PT Subjective Patient Comments Patient Comments It went backwards a bit. It's not horrible, but theres a little more pain with getting up and down. PT-OP-F Manual Assessment Start: 08/06/24 10:29 Freq: Status: Active Protocol: Document 08/06/24 09:45 DCW (Rec: 08/06/24 10:41 DCW [id number]) Manual Assessments Soft Tissue Assessment Soft Tissue Mobility Assessment Tenderness to palpation 2/4: Pain with wincing - left quad insertion, proximal gastroc, distal hamstrings Joint Mobility Assessment Joint Mobility Assessment Grinding in patella with lateral movements PT-OP-L Special Tests Start: 08/06/24 10:29 Freq: Status: Active Protocol: Document 08/06/24 09:45 DCW (Rec: 08/06/24 10:41 DCW [id number]) Special Tests Knee Special Tests Varus- 25 Degrees Test Results Negative Valgus- 25 Degrees Test Results Negative Posterior Draw Test Results Negative Patella Tap Test Results Negative Patellar Grind Test Test Results Positive Left Earlene Test Test Results Negative Dhillon Chondromalacia Test Results Positive Left Anterior Draw Test Results Negative PT-OP-M Strength Start: 08/06/24 10:29 Freq: Status: Active Protocol: Document 08/06/24 09:45 DCW (Rec: 08/06/24 10:41 DCW [id number]) Hip Strength Hip Manual Muscle Testing Right Flexion (L2) 4+ Good+ Abduction 4+ Good+ Adduction 4+ Good+ External Rotation 4+ Good+ Internal Rotation 4+ Good+ Left Flexion (L2) 4- Good- Abduction 4 Good Adduction 4 Good External Rotation 4+ Good+ Internal Rotation 4+ Good+ Knee Strength Knee Manual Muscle Testing Right Flexion (S2) 4+ Good+ Extension (L3) 4+ Good+ Left Flexion (S2) 4+ Good+ Extension (L3) 4+ Good+ PT-OP-Q Treatments Start: 08/06/24 10:29 Freq: Status: Active Protocol: Document 09/29/24 10:45 DCW (Rec: 09/29/24 11:29 DCW [id number]) Gym Equipment Shuttle Recovery bilateral squat Details 75# Reps/Time 2x15 single leg squat Resistance 50# Reps/Time 2x15 Therapeutic Exercises Supine Exercises Piriformis Supine Exercise Name Piriformis stretch Side bilateral Single KtC Supine Exercise Name Single KtC Side bilateral Hamstring Stretch Supine Exercise Name Hamstring stretch Side bilateral Reps/Minutes 60 sec X 2 left X 1 R Comments post manual Standing Exercises Hip Extension Standing Exercise Name Hip Extension Side bilateral Resistance Green Other Exercises Resisted Ambulation Other Exercise Name Resisted Side-stepping Resistance Green Manual Therapy Treatment Consent Patient gave verbal consent for manual Yes treatment Soft Tissue Mobilization Left leg Body Location Hamstrings, Quads, Calf, ITB Mobilization Type Cross-Friction,Rolling, Sustained Pressure Body Position Hooklying Joint Mobilizations patellar mobs Joint CW CCW, inf, sup, lat and med Direction L knee Grade III Reps/Duration X5 X 5 Left knee Joint L knee Direction P<->A Grade III Body Position Hooklying PT-OP-T Assessment and Plan Start: 08/06/24 10:29 Freq: Status: Active Protocol: Document 09/29/24 10:45 DCW (Rec: 09/29/24 11:29 DCW [id number]) Physical Therapy Assessment Impairments Impairments Functional Activities, Functional Mobility,Pain,Soft Tissue Mobility,Strength Goals Three Impairment Increased pain with repeated ascend/descend stairs Snf Goal (LTG) Pt to report ability to ascend /descend a full set of stairs 4 times without increased pain LTG Duration 10/04/24 Two Impairment Decreased quality of patellar tracking with knee extension Cylinder Loader Goal (LTG) Pt to demonstrate increased muscle mass and quality of contraction in left VMO in order to improve patellar tracking LTG Duration 10/04/24 One Impairment Pt does not have an appropriate home exercise program Short Term Goal (STG) Pt to be independent and compliant with an appropriate HEP STG Duration 09/06/24 Assessment Summary Assessment Pt feels like after a lot of improvement, she has had a slight decline, however also notes it has corresponded with no longer using Voltarin gel. Is overall fairly happy with progress. Continue to focus on strengthening and functional mobility Physical Therapy Plan Frequency and Duration Frequency of Treatment 2x/Week Plan of Care Start Date 08/06/24 Plan of Care End Date 10/04/24 Therapeutic Interventions Therapeutic Interventions Home Exercise Program,Joint Mobilizations,Manual Therapy, Neuromuscular Re-education, Patient/Caregiver Education, Self-Care/Home Management,Soft Tissue Mobilization, Therapeutic Activities, Therapeutic Exercises, Vestibular Rehabilitation Modalities Cold Pack/Ice Massage,Hot Packs Next Visit Focus/Plan Next Note Type Progress Note Next Visit Plan VMO strengthening, joint mobilization, STM
--- NOTE | 2024-10-01 11:13 | PT.OTN ---
Current Diagnoses Patellofemoral disorders, left knee (10/01/24) Pain in right knee (10/01/24) Pain in left knee (10/01/24) Strain of unspecified muscle(s) and tendon(s) at lower leg level, unspecified leg, initial encounter (10/01/24) Strain of unspecified muscle(s) and tendon(s) at lower leg level, unspecified leg, subsequent encounter (10/01/24) Physical Therapy Treatment Note PT-OP-A Visit Information Start: 08/06/24 10:29 Freq: Status: Active Protocol: Document 10/01/24 10:45 DCW (Rec: 10/01/24 11:13 DCW [id number]) Out-Patient Physical Therapy Visit Information Visit Information Visit Type Discharge Summary Visit Start Time 10:45 Visit Stop Time 11:00 Visit Number 8 Number of BURIAL VAULT MAKER Visits 0 Evaluation Information Evaluation Date 08/06/24 PT-OP-B Current Condition Start: 08/06/24 10:29 Freq: Status: Active Protocol: Document 08/06/24 09:45 DCW (Rec: 08/06/24 16:04 DCW [id number]) Current Condition History of Current Condition Onset Date Six month history Current Complaints Insideous onset L>R knee pain History of Current Condition Pt is a 73 year old female presenting with a six month history of L>R bilateral kness pain. Reports there was no initial injury, no notable life changes, she just work up one day and her knees were bothering her. Was not too bad , until a few weeks later, she was at her daughter's place babysitting her grandkids, and went up and down their stairs a few times, and her knees really flared up. She note her left knee specifically was quite swollen and painful, especially along superior patella and posterior knee. Slowly improved over a few weeks, and was largely improved for the past few months, until she went bowling with her family on Day. No pain at the time, but could barely move upon waking the next day. Almost always left worse than right, and worse when first getting up in the AM. Does note that this morning (08/06) was the first time since where she woke up with no swelling or pain. Denies and knee buckling or locking up. 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 PT-OP-C Subjective Start: 08/06/24 10:29 Freq: Status: Active Protocol: Document 10/01/24 10:45 DCW (Rec: 10/01/24 10:49 DCW [id number]) OP-PT Subjective Patient Comments Patient Comments I have a lot going on in my lift right now, I have family moving into my house, and it's tough getting here from [facility]. I think I just need to focus on myslef right now, and do my stuff at home. Does note that her knee don't hurt, they're just stiff. Patient Reported Progress Improving PT-OP-F Manual Assessment Start: 08/06/24 10:29 Freq: Status: Active Protocol: Document 10/01/24 10:45 DCW (Rec: 10/01/24 10:56 DCW [id number]) Manual Assessments Soft Tissue Assessment Soft Tissue Mobility Assessment Tenderness to palpation 07/25: Complaint of pain - left proximal gastroc, distal hamstrings PT-OP-L Special Tests Start: 08/06/24 10:29 Freq: Status: Active Protocol: Document 10/01/24 10:45 DCW (Rec: 10/01/24 10:56 DCW [id number]) Special Tests Knee Special Tests Varus- 25 Degrees Test Results Negative Valgus- 25 Degrees Test Results Negative Posterior Draw Test Results Negative Patella Tap Test Results Negative Patellar Grind Test Test Results Negative Earlene Test Test Results Negative Dhillon Chondromalacia Test Results Negative Anterior Draw Test Results Negative PT-OP-M Strength Start: 08/06/24 10:29 Freq: Status: Active Protocol: Document 10/01/24 10:45 DCW (Rec: 10/01/24 10:56 DCW [id number]) Hip Strength Hip Manual Muscle Testing Right Flexion (L2) 4+ Good+ Abduction 4+ Good+ Adduction 4+ Good+ External Rotation 4+ Good+ Internal Rotation 4+ Good+ Left Flexion (L2) 4+ Good+ Abduction 4+ Good+ Adduction 4+ Good+ External Rotation 4+ Good+ Internal Rotation 4+ Good+ Comments Mild knee pain with resisted ER Knee Strength Knee Manual Muscle Testing Right Flexion (S2) 4+ Good+ Extension (L3) 4+ Good+ Left Flexion (S2) 4+ Good+ Extension (L3) 4+ Good+ Ankle/Foot Strength Ankle and Foot Manual Muscle Testing Right Dorsiflexion (L4) 4+ Good+ Left Dorsiflexion (L4) 4+ Good+ PT-OP-Q Treatments Start: 08/06/24 10:29 Freq: Status: Active Protocol: Document 09/29/24 10:45 DCW (Rec: 09/29/24 11:29 DCW [id number]) Gym Equipment Shuttle Recovery bilateral squat Details 75# Reps/Time 2x15 single leg squat Resistance 50# Reps/Time 2x15 Therapeutic Exercises Supine Exercises Piriformis Supine Exercise Name Piriformis stretch Side bilateral Single KtC Supine Exercise Name Single KtC Side bilateral Hamstring Stretch Supine Exercise Name Hamstring stretch Side bilateral Reps/Minutes 60 sec X 2 left X 1 R Comments post manual Standing Exercises Hip Extension Standing Exercise Name Hip Extension Side bilateral Resistance Green Other Exercises Resisted Ambulation Other Exercise Name Resisted Side-stepping Resistance Green Manual Therapy Treatment Consent Patient gave verbal consent for manual Yes treatment Soft Tissue Mobilization Left leg Body Location Hamstrings, Quads, Calf, ITB Mobilization Type Cross-Friction,Rolling, Sustained Pressure Body Position Hooklying Joint Mobilizations patellar mobs Joint CW CCW, inf, sup, lat and med Direction L knee Grade III Reps/Duration X5 X 5 Left knee Joint L knee Direction P<->A Grade III Body Position Hooklying PT-OP-T Assessment and Plan Start: 08/06/24 10:29 Freq: Status: Active Protocol: Document 10/01/24 10:45 DCW (Rec: 10/01/24 11:13 DCW [id number]) Physical Therapy Assessment Impairments Impairments Functional Activities, Functional Mobility,Pain,Soft Tissue Mobility,Strength Goals Three Impairment Increased pain with repeated ascend/descend stairs Inspection Engineer Goal (LTG) Pt to report ability to ascend /descend a full set of stairs 4 times without increased pain LTG Duration Met Two Impairment Decreased quality of patellar tracking with knee extension Inspection Engineer Goal (LTG) Pt to demonstrate increased muscle mass and quality of contraction in left VMO in order to improve patellar tracking LTG Duration Met One Impairment Pt does not have an appropriate home exercise program Short Term Goal (STG) Pt to be independent and compliant with an appropriate HEP STG Duration Met Progress Towards Goals Progress Towards Goals Goals Met Assessment Summary Assessment Pt doing very well overall, has met all goals. Additionally, pt requests discharge, has a lot going on in her lift right now, would prefer to transition to independent HEP. Physical Therapy Plan Frequency and Duration Frequency of Treatment 2x/Week Plan of Care Start Date 08/06/24 Plan of Care End Date 10/04/24 Therapeutic Interventions Therapeutic Interventions Home Exercise Program,Joint Mobilizations,Manual Therapy, Neuromuscular Re-education, Patient/Caregiver Education, Self-Care/Home Management,Soft Tissue Mobilization, Therapeutic Activities, Therapeutic Exercises, Vestibular Rehabilitation Modalities Cold Pack/Ice Massage,Hot Packs Discharge Physical Therapy Discharge Reasons Goals Met Next Visit Focus/Plan Next Note Type Discharge Summary
== END 2024-10-07 15:45 | disposition home or self-care (01) ==
LOC: PHYS 10:45
PROVIDERS: Family Provider Family Medicine; PCP Family Medicine; Referring Provider Physician Assistant; Visit Provider Physician Assistant
DX: M25.561 Pain in right knee (principal); M25.562 Pain in left knee; S86.919D Strain of unspecified muscle(s) and tendon(s) at lower leg level, unspecified leg, subsequent encounter; M22.2X2 Patellofemoral disorders, left knee; S86.919A Strain of unspecified muscle(s) and tendon(s) at lower leg level, unspecified leg, initial encounter
CPT/HCPCS: 97110; 97140; 97162